=== PATIENT | male | born 1950 | race African-American/Black ===

== ENCOUNTER 2017-01-23 08:10 | Emergency (ER) | payer MEDICARE, OTHER ==
--- NOTE | 2017-01-23 08:42 | ED ---
ENT HPI - General Chief complaint: ENT Stated complaint: nose bleed Time Seen by Provider: 01/23/17 08:19 Source: patient, family, RN notes reviewed Mode of arrival: ambulatory Limitations: no limitations - History of Present Illness Initial comments: 66-year-old male presents emergency Department with chief complaint of nosebleed. Patient states she's been having recurrent nosebleeds ever since her sinus surgery by Dr. Lorenz. Patient states she had surgery in October. Patient states that he was just seen in the ER 2 days ago and which stop the nosebleed but states it restarted again this morning. He states that she has nosebleeds in the morning and sometimes in the afternoons. Patient states he does take his blood pressure medications in the morning. Patient denies any headache, dizziness, fever, chills. Patient is not taking any blood thinners. Patient has called his ENTs office multiple times and he continued to tell him to use Afrin and saline rinses and cotton balls. Patient states is not helping. Patient states that he is scheduled for sinus CT and a couple days. Patient states he is getting large clots out of his nose and out of his mouth - Related Data Home Medications Medication Instructions Recorded Confirmed Aspirin 81 mg PO DAILY 01/17/15 01/17/15 Atorvastatin [Lipitor] 80 mg PO DAILY 01/17/15 01/17/15 Chlorthalidone 25 mg PO DAILY 01/17/15 01/17/15 Cholecalciferol [Vitamin D3] 2,000 unit PO DAILY@1200 01/17/15 01/17/15 Fluticasone Propionate [Flonase] 1 spray EA NOSTRIL DAILY 01/17/15 01/17/15 Folic Acid 1 mg PO DAILY 01/17/15 01/17/15 Ibuprofen [Motrin] 800 mg PO QID PRN 01/17/15 01/17/15 Losartan [Cozaar] 50 mg PO DAILY 01/17/15 01/17/15 Methotrexate Sodium [Methotrexate] 10 mg PO Q7D 01/17/15 01/17/15 Potassium Chloride ER [K-Dur 20] 40 meq PO DAILY 01/17/15 01/17/15 Ranitidine HCl [Zantac] 150 mg PO BID PRN 01/17/15 01/17/15 Verapamil HCl [Verapamil ER] 240 mg PO BID 01/17/15 01/17/15 hydrALAZINE HCL [Apresoline] 100 mg PO TID 01/17/15 01/17/15 Previous Rx's Medication Instructions Recorded Dicyclomine [Bentyl] 20 mg PO QID #14 tablet 01/17/15 Amoxicillin/Potassium Clav 1 tab PO Q12HR #20 tab 01/23/17 [Augmentin 875-125 Tablet] Hydrocodone/Acetaminophen [[place] 1 tab PO Q6HR PRN #15 tab 01/23/17 5-325] Allergies Allergy/AdvReac Type Severity Reaction Status Date / Time Latex, Natural Rubber Allergy Rash/Hives Verified 01/23/17 08:17 Review of Systems ROS Statement: Those systems with pertinent positive or pertinent negative responses have been documented in the HPI. ROS Other: All systems not noted in ROS Statement are negative. Past Medical History Past Medical History: CVA/TIA, Hypertension History of Any Multi-Drug Resistant Organisms: None Reported Past Surgical History: Hernia Repair Additional Past Surgical History / Comment(s): unsure choley, sinus surgery Past Psychological History: No Psychological Hx Reported Smoking Status: Former smoker Past Alcohol Use History: None Reported Past Drug Use History: None Reported General Exam Limitations: no limitations General appearance: alert, in no apparent distress Head exam: Present: atraumatic, normocephalic, normal inspection Eye exam: Present: normal appearance, PERRL, EOMI. Absent: scleral icterus, conjunctival injection, periorbital swelling ENT exam: Present: mucous membranes moist, TM's normal bilaterally, normal external ear exam, other (No visualized active bleeding in the anterior nose). Absent: normal oropharynx (Blood noted in the oropharynx and posterior pharynx) Neck exam: Present: normal inspection, full ROM. Absent: tenderness, meningismus, lymphadenopathy Respiratory exam: Present: normal lung sounds bilaterally. Absent: respiratory distress, wheezes, rales, rhonchi, stridor Cardiovascular Exam: Present: regular rate, normal rhythm, normal heart sounds. Absent: systolic murmur, diastolic murmur, rubs, gallop, clicks Neurological exam: Present: alert Skin exam: Present: warm, dry, intact, normal color. Absent: rash Course Vital Signs 01/23/17 08:15 Temperature 97.2 F L Pulse Rate 82 Respiratory 20 Rate Blood Pressure 130/93 O2 Sat by Pulse 98 Oximetry Procedures - Procedures Initial comment: Procedure: 8 cm Merocel was placed in the left and right nostril Afrin was sprayed after. Patient tolerate well there is no complications. Medical Decision Making - Medical Decision Making 66-year-old male presented for epistaxis. Case was discussed with his ENT physician Dr. Lorenz. Patient had on-and-off bleeding ever since her sinus surgery in October. He did advises to pack both nostrils at this time with Merocel and he'll follow-up in office on Thursday. He did recommend antibiotics. Disposition Clinical Impression: Epistaxis Disposition: HOME SELF-CARE Condition: Stable Instructions: Nosebleed (ED) Additional Instructions: Please leave packing in place and follow-up with Dr. Lorenz on Thursday.Please return to the Emergency Department if symptoms worsen or any other concerns. Prescriptions: Amoxicillin/Potassium Clav [Augmentin 875-125 Tablet] 1 tab PO Q12HR #20 tab Hydrocodone/Acetaminophen [[place] 5-325] 1 tab PO Q6HR PRN #15 tab PRN Reason: Pain Time of Disposition: 11:10
--- NOTE | 2017-01-23 09:10 | CT ---
EXAMINATION TYPE: CT sinus wo con DATE OF EXAM: 01/23/2017 8:54 AM COMPARISON: NONE HISTORY: 66-year-old male with nose bleeds. History of sinus surgery in October 2016. CT DLP: 667.3 mGycm Automated exposure control for dose reduction was used. TECHNIQUE: Noncontrast axial views of the paranasal sinuses were obtained. Coronal reconstructions pe rformed. FINDINGS: There is a trace air-fluid level in the right maxillary sinus with persistent mucosal thickening lola g the posterior and inferior left maxillary sinus. Air-fluid level in the left maxillary sinus has de creased in the interval with trace fluid remaining. Otherwise, the frontal, ethmoid, and sphenoid sinuses are clear. Reactive [place]- osteogenesis is not seen. There is no destruction of the osseous live of the paranasal sinuses. The osteomeatal complexes are patent. The nasal septum remains deviated to the left. The imaged brain shows mild to moderate cortical atrophy. The orbits are normal in appearance. There appears to be retropharyngeal course of the right ICA impressing on to the right posterior hypopharyn x. Mastoid air cells and middle ear cavities are well pneumatized. Reformatted images confirm above findings. IMPRESSION: 1. Trace air-fluid level in the right maxillary sinus could reflect acute sinusitis. 2. Mild residual mucosal thickening in the posterior and inferior left maxillary sinus with trace rem aining air-fluid level, decreased from 09/13/2016. 3. Leftward nasal septal deviation.
[2017-01-23] MEDS ORDERED: OXYMETAZOLINE 0.05% NASL SPRAY 15 ML NASAL STA (11:08)
[2017-01-23 11:24] VITALS: BP 120/70; PULSE 79; RESP 16; TEMP 98
== END 2017-01-23 11:21 | disposition home or self-care (01) ==
LOC: EC 08:10
DX: R04.0 Epistaxis (principal); I10 Essential (primary) hypertension; Z87.891 Personal history of nicotine dependence; Z79.82 Long term (current) use of aspirin; Z79.51 Long term (current) use of inhaled steroids; Z98.890 Other specified postprocedural states; Z79.899 Other long term (current) drug therapy; Z91.040 Latex allergy status; Z86.73 Personal history of transient ischemic attack (TIA), and cerebral infarction without residual deficits
CPT/HCPCS: 30901; 70486; 99283

== ENCOUNTER 2017-01-25 12:15 | Emergency (ER) | payer MEDICARE, OTHER ==
[2017-01-25 12:34] VITALS: BP 142/75; PULSE 72; RESP 17; TEMP 97.8
--- NOTE | 2017-01-25 13:38 | ED ---
Recheck HPI - General Chief Complaint: Recheck/Abnormal Lab/Rx Stated Complaint: Nose Packing Removal Time Seen by Provider: 01/25/17 13:05 Source: patient Mode of arrival: wheelchair Limitations: no limitations - History of Present Illness Initial Comments: Patient is a 66-year-old male presenting to the emergency department with complaints of nasal discomfort. Patient states that he underwent sinus surgery in October and has had problems with epistaxis on and off since. Patient states he presented to the emergency department 2 days ago for uncontrolled epistaxis and received nasal packing to both nostrils. Patient states he has an appointment tomorrow with Dr. Lorenz to have the nasal repackings removed but they are very uncomfortable. Patient states that he did speak with Dr. Lorenz's office and they instructed him to proceed to the emergency department to have packings removed. Patient denies chills, fevers, nausea, vomiting, shortness of breath, chest pain, or abdominal pain. Patient reports that he is currently taking antibiotics that he was placed on when he had his nasal packings put in place. - Related Data Home Medications Medication Instructions Recorded Confirmed Aspirin 81 mg PO DAILY 01/17/15 01/17/15 Atorvastatin [Lipitor] 80 mg PO DAILY 01/17/15 01/17/15 Chlorthalidone 25 mg PO DAILY 01/17/15 01/17/15 Cholecalciferol [Vitamin D3] 2,000 unit PO DAILY@1200 01/17/15 01/17/15 Fluticasone Propionate [Flonase] 1 spray EA NOSTRIL DAILY 01/17/15 01/17/15 Folic Acid 1 mg PO DAILY 01/17/15 01/17/15 Ibuprofen [Motrin] 800 mg PO QID PRN 01/17/15 01/17/15 Losartan [Cozaar] 50 mg PO DAILY 01/17/15 01/17/15 Methotrexate Sodium [Methotrexate] 10 mg PO Q7D 01/17/15 01/17/15 Potassium Chloride ER [K-Dur 20] 40 meq PO DAILY 01/17/15 01/17/15 Ranitidine HCl [Zantac] 150 mg PO BID PRN 01/17/15 01/17/15 Verapamil HCl [Verapamil ER] 240 mg PO BID 01/17/15 01/17/15 hydrALAZINE HCL [Apresoline] 100 mg PO TID 01/17/15 01/17/15 Previous Rx's Medication Instructions Recorded Dicyclomine [Bentyl] 20 mg PO QID #14 tablet 01/17/15 Amoxicillin/Potassium Clav 1 tab PO Q12HR #20 tab 01/23/17 [Augmentin 875-125 Tablet] Hydrocodone/Acetaminophen [[place] 1 tab PO Q6HR PRN #15 tab 01/23/17 5-325] Allergies Allergy/AdvReac Type Severity Reaction Status Date / Time Latex, Natural Rubber Allergy Rash/Hives Verified 01/23/17 08:17 Review of Systems ROS Statement: Those systems with pertinent positive or pertinent negative responses have been documented in the HPI. ROS Other: All systems not noted in ROS Statement are negative. Past Medical History Past Medical History: CVA/TIA, Hypertension History of Any Multi-Drug Resistant Organisms: None Reported Past Surgical History: Hernia Repair Additional Past Surgical History / Comment(s): unsure choley, sinus surgery Past Psychological History: No Psychological Hx Reported Smoking Status: Former smoker Past Alcohol Use History: None Reported Past Drug Use History: None Reported General Exam - General Exam Comments Initial Comments: GENERAL: Pt awake and alert, well-appearing, well-nourished, and in no acute distress. HEAD: Atraumatic, normocephalic. EYES: Pupils equal and round. Sclera anicteric, conjunctiva are normal. ENT: Oropharynx clear without exudates. Moist mucous membranes. Nasal packing to bilateral naris. NECK: Supple without lymphadenopathy or JVD. LUNGS: Breath sounds clear to auscultation bilaterally. No wheezes, rales, or rhonchi. HEART: Heart S1, S2, no S3 or S4. Regular rate and rhythm. No murmurs, rubs or gallops. ABDOMEN: Soft, nontender, nondistended, normoactive bowel sounds. NEUROLOGICAL: Pt oriented x 3. No focal deficits. PSYCH: Normal mood, normal affect. SKIN: Warm and dry. Course Vital Signs 01/25/17 12:31 Temperature 97.8 F Pulse Rate 72 Respiratory 17 Rate Blood Pressure 142/75 O2 Sat by Pulse 98 Oximetry Procedures - Procedures Initial comment: Bilateral nasal packings removed. Patient tolerated well. No evidence of epistaxis. Medical Decision Making - Medical Decision Making Patient presents to the emergency department with complaints of nasal discomfort after undergoing bilateral nasal packing for epistaxis 2 days ago. Bilateral nasal packings removed without incident. No evidence of further epistaxis. Patient tolerated procedure well. Patient instructed to follow-up with Dr. Lorenz tomorrow as previously scheduled. Patient instructed to finish antibiotics as previous prescribed. Return parameters and discharge instructions reviewed. Disposition Clinical Impression: Encounter for removal of nasal packing Disposition: HOME SELF-CARE Condition: Good Instructions: Nosebleed (ED) Additional Instructions: Finish antibiotics as previously prescribed. Follow-up with Dr. Lorenz tomorrow as previously scheduled. Please return to the emergency department if epistaxis returns and is uncontrollable. Avoid blowing your nose forcefully. Referrals: Tuan Arizmendi MD [Primary Care Provider] - 1-2 days Time of Disposition: 13:38
== END 2017-01-25 14:09 | disposition home or self-care (01) ==
LOC: EC 12:15
DX: Z48.00 Encounter for change or removal of nonsurgical wound dressing (principal); I10 Essential (primary) hypertension; Z87.891 Personal history of nicotine dependence; Z79.82 Long term (current) use of aspirin; Z79.899 Other long term (current) drug therapy; Z91.040 Latex allergy status; Z86.73 Personal history of transient ischemic attack (TIA), and cerebral infarction without residual deficits
CPT/HCPCS: 99283

== ENCOUNTER → 2017-09-14 | Outpatient (CLI) | payer MEDICARE, OTHER ==
[2017-09-14 10:35] LABS: Anisocytosis Slight; Basophils % (A) 0 %; CH 27.2; CHCM 28.9; Eosinophils # (A) 0.1 k/uL (0-0.7); Eosinophils % (A) 1 %; HCT 32.6 % (39.0-53.0); HGB 9.5 gm/dL (13.0-17.5); Hypochromasia Marked; Luc # (Auto) 0.22; Luc % (Auto) 3; Lymphocytes # (A) 1.9 k/uL (1.0-4.8); Lymphocytes % (A) 22 %; MCH 27.6 pg (25.0-35.0); MCHC 29.2 g/dL (31.0-37.0); MCV 94.5 fL (80.0-100.0); Mean Platelet Volume 7.5; Monocytes # (A) 0.5 k/uL (0-1.0); Monocytes % (A) 6 %; Neutrophils # (A) 5.7 k/uL (1.3-7.7); Neutrophils % (A) 68 %; RBC 3.45 m/uL (4.30-5.90); RDW 16.8 % (11.5-15.5); WBC 8.3 k/uL (3.8-10.6); WBC (Perox) 8.15
[2017-09-14 10:49] LABS: INR 1.1 (<1.2); Prothrombin Time 11.1 sec (9.0-12.0)
[2017-09-14 10:50] LABS: Anion Gap 11 mmol/L; Blood Urea Nitrogen 10 mg/dL (9-20); Calcium 9.6 mg/dL (8.4-10.2); Carbon Dioxide 22 mmol/L (22-30); Chloride 106 mmol/L (98-107); Glucose 120 mg/dL (74-99); Non-African American GFR(MDRD) >60 (>60 ml/min/1.73 sqM); Potassium 4.4 mmol/L (3.5-5.1); Sodium 139 mmol/L (137-145)
[2017-09-14 11:00] LABS: Partial Thromboplastin Time 21.1 sec (22.0-30.0)
== END | disposition home or self-care (01) ==
LOC: LABWHC1 09:23
PROVIDERS: ATTEND Radiology Neuroradiology
DX: R04.0 Epistaxis (principal)
CPT/HCPCS: 36415; 80048; 85025; 85610; 85730

== ENCOUNTER 2021-03-11 13:36 | Inpatient (IN) | payer MEDICARE, OTHER ==
[2021-03-11] MEDS ORDERED: SODIUM CHLORIDE 0.9% 500 ML 500 ML IV STA (14:17)
--- NOTE | 2021-03-11 14:18 | ED ---
Abdominal Pain HPI - General Chief Complaint: Abdominal Pain Stated Complaint: Sent by pcp,ABD pain Time Seen by Provider: 03/11/21 14:15 Source: patient, RN notes reviewed Mode of arrival: wheelchair Limitations: no limitations - History of Present Illness Initial Comments: 70-year-old black male patient, alert and oriented 4, presents with complaints of abdominal pain epigastric in nature for one week. Patient seen his primary care doctor Dr. Arizmendi last week and was prescribed a purple pill but states does not make it better. Patient was also told his liver was enlarged at that time. Patient states that epigastric pain is sharp, sometimes it's distant where he knows it's there but not sharp. Patient states started while he was watching TV 1 week ago. Patient has history of CVA with right-sided weakness 1994, and hypertension. Surgical history of cholecystectomy and hernia repair. Patient states normal bowel movement today, no nausea or vomiting, no dysuria, denies fevers, occasional cough, denies chest pain. MD Complaint: abdominal pain -: days(s) (11) Location: epigastric Radiation: none Severity scale (1-10): 0 Quality: sharp, other (distant at times) Consistency: constant Improves With: rest Worsens With: movement Associated Symptoms: denies other symptoms Treatments Prior to Arrival: other (purple pill prescribed last week by Dr Arizmendi) - Related Data Home Medications Medication Instructions Recorded Confirmed Aspirin 81 mg PO DAILY 01/17/15 03/11/21 Atorvastatin [Lipitor] 80 mg PO DAILY 01/17/15 03/11/21 Cholecalciferol [Vitamin D3 (25 5,000 unit PO DAILY 01/17/15 03/11/21 Mcg = 1000 Iu)] Folic Acid 1 mg PO DAILY 01/17/15 03/11/21 Potassium Chloride ER [K-Dur 20] 20 meq PO DAILY 01/17/15 03/11/21 metHOTREXate sodium [Methotrexate] 25 mg PO MO 01/17/15 03/11/21 Doxazosin [Cardura] 2 mg PO DAILY 09/23/17 03/11/21 Magnesium Oxide 400 mg PO DAILY 09/23/17 03/11/21 Spironolactone [Aldactone] 25 mg PO TID 09/23/17 03/11/21 metFORMIN HCL [Glucophage] 500 mg PO DIRECTED 09/23/17 03/11/21 Acetaminophen [Tylenol 8 Hour] 1,300 mg PO TID PRN 03/11/21 03/11/21 Albuterol Inhaler [Ventolin Hfa 2 puff INHALATION RT-QID PRN 03/11/21 03/11/21 Inhaler] Ferrous Sulfate [Iron] 325 mg PO TID 03/11/21 03/11/21 Omeprazole [PriLOSEC] 20 mg PO DAILY 03/11/21 03/11/21 amLODIPine [Norvasc] 5 mg PO DAILY 03/11/21 03/11/21 Allergies Allergy/AdvReac Type Severity Reaction Status Date / Time Latex, Natural Rubber Allergy Rash/Hives Verified 03/11/21 16:42 Review of Systems ROS Statement: Those systems with pertinent positive or pertinent negative responses have been documented in the HPI. ROS Other: All systems not noted in ROS Statement are negative. Past Medical History Past Medical History: CVA/TIA, Hypertension History of Any Multi-Drug Resistant Organisms: None Reported Past Surgical History: Hernia Repair Additional Past Surgical History / Comment(s): unsure choley, sinus surgery Past Anesthesia/Blood Transfusion Reactions: No Reported Reaction Past Psychological History: No Psychological Hx Reported Smoking Status: Former smoker Past Alcohol Use History: None Reported Past Drug Use History: None Reported - Past Family History Brother(s) Family Medical History: Diabetes Mellitus General Exam Limitations: no limitations General appearance: alert, in no apparent distress Head exam: Present: atraumatic, normocephalic, normal inspection Eye exam: Present: PERRL, EOMI, scleral icterus. Absent: conjunctival injection, periorbital swelling ENT exam: Present: normal exam, mucous membranes moist Neck exam: Present: normal inspection, full ROM. Absent: tenderness, meningismus, lymphadenopathy Respiratory exam: Present: normal lung sounds bilaterally. Absent: respiratory distress, wheezes, rales, rhonchi, stridor Cardiovascular Exam: Present: regular rate, normal rhythm, normal heart sounds. Absent: systolic murmur, diastolic murmur, rubs, gallop, clicks GI/Abdominal exam: Present: soft, distended, normal bowel sounds. Absent: tenderness, guarding, rebound, rigid Extremities exam: Present: normal inspection, full ROM, normal capillary refill. Absent: tenderness, pedal edema, joint swelling, calf tenderness Neurological exam: Present: alert, oriented X3 Psychiatric exam: Present: normal affect, normal mood Skin exam: Present: warm, dry, intact, normal color. Absent: rash Course Vital Signs 03/11/21 03/11/21 03/11/21 13:50 15:38 16:55 Temperature 98.0 F Pulse Rate 77 68 63 Respiratory 189 H 18 18 Rate Blood Pressure 136/88 173/93 161/96 O2 Sat by Pulse 100 98 98 Oximetry 03/11/21 18:50 Temperature Pulse Rate 70 Respiratory 18 Rate Blood Pressure 123/82 O2 Sat by Pulse 98 Oximetry Medical Decision Making - Medical Decision Making X-ray shows scattered gas and fecal matter in a nondistended colon, no obstruction. WBC count is 5.0, hemoglobin and hematocrit is 14.4 and 44.4 respectively, potassium is 4.1, troponin 0.012. T bili 4.7, AST 667, PLT 648, alk phos 354. CT abdomen and pelvis shows positive colonic diverticulitis with right renal cysts. Case discussed with Dr. Cabrera who will continue with patient care. - Lab Data Result diagrams: 03/11/21 15:39 03/11/21 15:39 Lab Results 03/11/21 03/11/21 03/11/21 Range/Units 15:39 15:39 15:39 WBC 5.0 (3.8-10.6) k/uL RBC 4.43 (4.30-5.90) m/uL Hgb 14.4 (13.0-17.5) gm/dL Hct 44.4 (39.0-53.0) % MCV 100.0 (80.0-100.0) fL MCH 32.5 (25.0-35.0) pg MCHC 32.5 (31.0-37.0) g/dL RDW 14.4 (11.5-15.5) % Plt Count 155 (150-450) k/uL MPV 8.2 Neutrophils % 63 % Lymphocytes % 27 % Monocytes % 7 % Eosinophils % 1 % Basophils % 0 % Neutrophils # 3.2 (1.3-7.7) k/uL Lymphocytes # 1.3 (1.0-4.8) k/uL Monocytes # 0.3 (0-1.0) k/uL Eosinophils # 0.0 (0-0.7) k/uL Basophils # 0.0 (0-0.2) k/uL Macrocytosis Slight PT 12.0 (9.0-12.0) sec INR 1.1 (<1.2) APTT 22.6 (22.0-30.0) sec Sodium (137-145) mmol/L Potassium (3.5-5.1) mmol/L Chloride (98-107) mmol/L Carbon Dioxide (22-30) mmol/L Anion Gap mmol/L BUN (9-20) mg/dL Creatinine (0.66-1.25) mg/dL Est GFR (CKD-EPI)AfAm (>60 ml/min/1.73 sqM) Est GFR (CKD-EPI)NonAf (>60 ml/min/1.73 sqM) Glucose (74-99) mg/dL Plasma Lactic Acid Prudencio (0.7-2.0) mmol/L Calcium (8.4-10.2) mg/dL Total Bilirubin (0.2-1.3) mg/dL AST (17-59) U/L ALT (4-49) U/L Alkaline Phosphatase (38-126) U/L Troponin I (0.000-0.034) ng/mL Total Protein (6.3-8.2) g/dL Albumin (3.5-5.0) g/dL Amylase (30-110) U/L Lipase (23-300) U/L Urine Color Yellow Urine Appearance Clear (Clear) Urine pH 5.5 (5.0-8.0) Ur Specific [place] 1.005 (1.001-1.035) Urine Protein Negative (Negative) Urine Glucose (UA) 2+ H (Negative) Urine Ketones 1+ H (Negative) Urine Blood Negative (Negative) Urine Nitrite Negative (Negative) Urine Bilirubin Negative (Negative) Urine Urobilinogen <2.0 (<2.0) mg/dL Ur Leukocyte Esterase Negative (Negative) Coronavirus (PCR) (Not Detectd) 03/11/21 03/11/21 03/11/21 Range/Units 15:39 15:39 15:39 WBC (3.8-10.6) k/uL RBC (4.30-5.90) m/uL Hgb (13.0-17.5) gm/dL Hct (39.0-53.0) % MCV (80.0-100.0) fL MCH (25.0-35.0) pg MCHC (31.0-37.0) g/dL RDW (11.5-15.5) % Plt Count (150-450) k/uL MPV Neutrophils % % Lymphocytes % % Monocytes % % Eosinophils % % Basophils % % Neutrophils # (1.3-7.7) k/uL Lymphocytes # (1.0-4.8) k/uL Monocytes # (0-1.0) k/uL Eosinophils # (0-0.7) k/uL Basophils # (0-0.2) k/uL Macrocytosis PT (9.0-12.0) sec INR (<1.2) APTT (22.0-30.0) sec Sodium 136 L (137-145) mmol/L Potassium 4.1 (3.5-5.1) mmol/L Chloride 103 (98-107) mmol/L Carbon Dioxide 26 (22-30) mmol/L Anion Gap 7 mmol/L BUN 7 L (9-20) mg/dL Creatinine 0.84 (0.66-1.25) mg/dL Est GFR (CKD-EPI)AfAm >90 (>60 ml/min/1.73 sqM) Est GFR (CKD-EPI)NonAf 89 (>60 ml/min/1.73 sqM) Glucose 148 H (74-99) mg/dL Plasma Lactic Acid Prudencio 1.2 (0.7-2.0) mmol/L Calcium 9.1 (8.4-10.2) mg/dL Total Bilirubin 4.7 H (0.2-1.3) mg/dL AST 667 H (17-59) U/L ALT 648 H (4-49) U/L Alkaline Phosphatase 354 H (38-126) U/L Troponin I <0.012 (0.000-0.034) ng/mL Total Protein 6.9 (6.3-8.2) g/dL Albumin 3.9 (3.5-5.0) g/dL Amylase 99 (30-110) U/L Lipase 226 (23-300) U/L Urine Color Urine Appearance (Clear) Urine pH (5.0-8.0) Ur Specific [place] (1.001-1.035) Urine Protein (Negative) Urine Glucose (UA) (Negative) Urine Ketones (Negative) Urine Blood (Negative) Urine Nitrite (Negative) Urine Bilirubin (Negative) Urine Urobilinogen (<2.0) mg/dL Ur Leukocyte Esterase (Negative) Coronavirus (PCR) (Not Detectd) 03/11/21 Range/Units 18:50 WBC (3.8-10.6) k/uL RBC (4.30-5.90) m/uL Hgb (13.0-17.5) gm/dL Hct (39.0-53.0) % MCV (80.0-100.0) fL MCH (25.0-35.0) pg MCHC (31.0-37.0) g/dL RDW (11.5-15.5) % Plt Count (150-450) k/uL MPV Neutrophils % % Lymphocytes % % Monocytes % % Eosinophils % % Basophils % % Neutrophils # (1.3-7.7) k/uL Lymphocytes # (1.0-4.8) k/uL Monocytes # (0-1.0) k/uL Eosinophils # (0-0.7) k/uL Basophils # (0-0.2) k/uL Macrocytosis PT (9.0-12.0) sec INR (<1.2) APTT (22.0-30.0) sec Sodium (137-145) mmol/L Potassium (3.5-5.1) mmol/L Chloride (98-107) mmol/L Carbon Dioxide (22-30) mmol/L Anion Gap mmol/L BUN (9-20) mg/dL Creatinine (0.66-1.25) mg/dL Est GFR (CKD-EPI)AfAm (>60 ml/min/1.73 sqM) Est GFR (CKD-EPI)NonAf (>60 ml/min/1.73 sqM) Glucose (74-99) mg/dL Plasma Lactic Acid Prudencio (0.7-2.0) mmol/L Calcium (8.4-10.2) mg/dL Total Bilirubin (0.2-1.3) mg/dL AST (17-59) U/L ALT (4-49) U/L Alkaline Phosphatase (38-126) U/L Troponin I (0.000-0.034) ng/mL Total Protein (6.3-8.2) g/dL Albumin (3.5-5.0) g/dL Amylase (30-110) U/L Lipase (23-300) U/L Urine Color Urine Appearance (Clear) Urine pH (5.0-8.0) Ur Specific [place] (1.001-1.035) Urine Protein (Negative) Urine Glucose (UA) (Negative) Urine Ketones (Negative) Urine Blood (Negative) Urine Nitrite (Negative) Urine Bilirubin (Negative) Urine Urobilinogen (<2.0) mg/dL Ur Leukocyte Esterase (Negative) Coronavirus (PCR) Detected A (Not Detectd) Disposition Clinical Impression: Hepatitis Disposition: ADMITTED IP TO THIS [facility] Condition: Fair Is patient prescribed a controlled substance at d/c from ED?: No Referrals: Tuan Arizmendi MD [Primary Care Provider] - 1-2 days Decision Date: 03/11/21 Decision Time: 20:18
--- NOTE | 2021-03-11 15:31 | XR ---
EXAMINATION TYPE: XR KUB DATE OF EXAM: 03/11/2021 3:22 PM CLINICAL HISTORY: Abdominal pain for one week. TECHNIQUE: Two Upright KUB images of the abdomen are obtained. COMPARISON: Abdominal x-ray December 12, 2012. FINDINGS: Gas is seen in nondistended stomach. Scattered gas is seen in non-distended small bowel loo ps. Gas and fecal material is seen in non-distended colon along the periphery. Cholecystectomy clips redemonstrated. Chronic left basilar opacity favoring scarring. Possible 13 mm calculus right mid abd omen on one view does not persist on second image. No free air. Suspect asymmetric narrowing and scle rosis right sacroiliac joint. Scattered bilateral pelvic phleboliths. IMPRESSION: Overall nonobstructive bowel gas pattern redemonstrated.
[2021-03-11 15:49] LABS: Basophils % (A) 0 %; Eosinophils % (A) 1 %; HCT 44.4 % (39.0-53.0); HGB 14.4 gm/dL (13.0-17.5); Lymphocytes # (A) 1.3 k/uL (1.0-4.8); Lymphocytes % (A) 27 %; MCH 32.5 pg (25.0-35.0); MCHC 32.5 g/dL (31.0-37.0); Macrocytosis Slight; Mean Platelet Volume 8.2; Monocytes # (A) 0.3 k/uL (0-1.0); Monocytes % (A) 7 %; Neutrophils # (A) 3.2 k/uL (1.3-7.7); Neutrophils % (A) 63 %; Platelet Count 155 k/uL (150-450); RBC 4.43 m/uL (4.30-5.90); RDW 14.4 % (11.5-15.5)
[2021-03-11 16:05] LABS: ALT 648 U/L (4-49); AST 667 U/L (17-59); African American GFR (CKD) >90 (>60 ml/min/1.73 sqM); Albumin 3.9 g/dL (3.5-5.0); Alkaline Phosphatase 354 U/L (38-126); Amylase 99 U/L (30-110); Anion Gap 7 mmol/L; Blood Urea Nitrogen 7 mg/dL (9-20); Calcium 9.1 mg/dL (8.4-10.2); Carbon Dioxide 26 mmol/L (22-30); Chloride 103 mmol/L (98-107); Glucose 148 mg/dL (74-99); INR 1.1 (<1.2); Lipase 226 U/L (23-300); Non-African American GFR(CKD) 89 (>60 ml/min/1.73 sqM); Partial Thromboplastin Time 22.6 sec (22.0-30.0); Potassium 4.1 mmol/L (3.5-5.1); Sodium 136 mmol/L (137-145); Total Bilirubin 4.7 mg/dL (0.2-1.3); Total Protein 6.9 g/dL (6.3-8.2)
[2021-03-11 16:07] LABS: Appearance,Urine Clear (Clear); Bilirubin,Urine Negative (Negative); Blood,Urine Negative (Negative); Color,Urine Yellow; Glucose,Urine (UA) 2+ (Negative); Ketones,Urine 1+ (Negative); Leukocyte Esterase,Urine Negative (Negative); Nitrite,Urine Negative (Negative); PH, Urine 5.5 (5.0-8.0); Protein,Urine Negative (Negative); Specific Gravity,Urine 1.005 (1.001-1.035); Urobilinogen,Urine <2.0 mg/dL (<2.0)
[2021-03-11] MEDS ORDERED: FAMOTIDINE 20 MG/2 ML VIAL IV STA (16:47)
--- NOTE | 2021-03-11 18:54 | CT ---
EXAMINATION TYPE: CT abdomen pelvis w con DATE OF EXAM: 03/11/2021 COMPARISON: None HISTORY: Abdominal pain x1 week. CT DLP: 1511.9 mGycm Automated exposure control for dose reduction was used. CONTRAST: Performed with IV Contrast, patient injected with 100ml mL of Isovue 300. There is minimal subsegmental atelectasis at the lung bases. Heart size is normal. There is no perica rdial effusion. Liver spleen stomach pancreas appear intact. The bile ducts are not dilated. There are clips from cho lecystectomy. There is no adrenal mass. Kidneys have normal size. There is no hydronephrosis. There is satisfactory contrast opacification of the kidneys. There are right renal cortical cysts that measure up to 4 cm. There is no hydronephrosis. Delayed images show normal renal excretion. There is no retroperitoneal adenopathy. Bladder distends smoothly. There is no inguinal hernia. There is no free fluid in the pel vis. There is small umbilical hernia that contains fat. There is no evidence of a pelvic mass. There are multiple large bowel diverticula. There is no sign o f diverticulitis. Appendix is not definitely seen. There is no sign of thickened appendix. There is n o mesenteric edema. There is no ascites or free air. There is no bowel obstruction. The lumbar vertebra have normal alignment. There is vacuum disc at L5-S1. There is rudimentary disc a t S1-S2. There is some patchy sclerosis in the right iliac bone. Clinical significance is not clear. No cortical destruction. No evidence of soft tissue mass. IMPRESSION: No acute abnormality of the abdomen pelvis. There is colonic diverticulosis without diverticulitis. R ight renal cortical cysts. No renal obstruction. Appendix not seen. No sign of thickened appendix. Osteosclerosis in small patchy areas of the right ilium of uncertain significance.
[2021-03-11] MEDS ORDERED: NALOXONE 0.4 MG/ML 1 ML VIAL IV PRN (20:00)
[2021-03-12 01:26] LABS: Hepatitis A Antibody IgM Non-Reactive (Non-Reactive); Hepatitis B Core IgM Non-Reactive (Non-Reactive); Hepatitis B Surface Antigen Non-Reactive (Non-Reactive); Hepatitis C IgG Antibody Non-Reactive (Non-Reactive)
[2021-03-12] MEDS: SODIUM CHLORIDE 0.9% 1,000 ML IV SCH ×3 (01:55→17:14)
[2021-03-12 07:35] LABS: INR 1.1 (<1.2); Prothrombin Time 11.5 sec (9.0-12.0)
[2021-03-12] MEDS: PANTOPRAZOLE 40 MG/10 ML VIAL IVP SCH ×2 (08:09→21:19)
[2021-03-12 09:39] LABS: Basophils # (A) 0.01 X 10*3/uL (0.00-0.10); Basophils % (A) 0.2 %; Eosinophils # (A) 0.03 X 10*3/uL (0.04-0.35); Eosinophils % (A) 0.6 %; HCT 41.2 % (39.6-50.0); HGB 13.6 g/dL (13.0-17.0); Lymphocytes # (A) 1.71 X 10*3/uL (0.90-5.00); Lymphocytes % (A) 31.4 %; MCH 32.8 pg (27.0-32.0); MCV 99.3 fL (80.0-97.0); Mean Platelet Volume 11.4 fL (9.5-12.2); Monocytes # (A) 0.65 X 10*3/uL (0.20-1.00); Monocytes % (A) 11.9 %; Neutrophils # (A) 3.02 X 10*3/uL (1.80-7.70); Neutrophils % (A) 55.5 %; Platelet Count 152 X 10*3/uL (140-440); RBC 4.15 X 10*6/uL (4.40-5.60); RDW 13.5 % (11.5-14.5); WBC 5.44 X 10*3/uL (4.50-10.00)
--- NOTE | 2021-03-12 10:49 | US ---
EXAMINATION TYPE: US liver DATE OF EXAM: 03/12/2021 COMPARISON: CT 03/11/2021 CLINICAL HISTORY: 70-year-old male epigastric pain, elevated LFT's. TECHNIQUE: Multiple sonographic images of the right upper quadrant are obtained. FINDINGS: EXAM MEASUREMENTS: Liver Length: 12.9 cm Gallbladder: Surgically absent CBD: 0.5 cm Right Kidney: 11.0 x 4.8 x 4.8 cm Pancreas: Suboptimal visualization of the pancreatic tail due to shadowing from bowel gas. Liver: Very slight increased echogenicity could be technical or could represent mild fatty infiltrat ion. No focal lesion is seen. Gallbladder: Surgically absent CBD: wnl Right Kidney: 3 benign cysts seen, largest measures 2.8 x 3.1 x 3.7 cm. No hydronephrosis. IMPRESSION: 4. Status post cholecystectomy. Despite the prominent appearance of the bile duct on the patient's re cent CT, the bile ducts measures normal caliber on the present ultrasound. Correlate with alkaline ph osphatase and bilirubin levels. If elevated, ERCP or MRCP to exclude any abnormal filling defect in t he lower bile duct, refer to coronal image [address] performed yesterday. 2. There may be mild hepatic steatosis. 3. 3 benign right renal cysts measuring up to 3.7 cm.
[2021-03-12 14:23] LABS: African American GFR (CKD) 99.9 (60.0-200.0); Albumin 3.8 g/dL (3.80-4.90); Albumin/Globulin Ratio 1.58 (1.60-3.17); Anion Gap 13.8 mmol/L (4.00-12.00); BUN/Creat Ratio 7.78 Ratio (12.00-20.00); Calcium 8.7 mg/dL (8.7-10.3); Carbon Dioxide 21.2 mmol/L (21.6-31.8); Globulin 2.4 g/dL (1.6-3.3); Non-African American GFR(CKD) 86.2 (60.0-200.0); Potassium 3.8 mmol/L (3.5-5.5); Total Bilirubin 2.8 mg/dL (0.2-1.2); Total Protein 6.2 g/dL (6.2-8.2)
--- NOTE | 2021-03-12 16:28 | CONS ---
CONSULTATION DATE OF DICTATION: 03/12/2021 REASON FOR CONSULTATION: Epigastric pain and elevated LFTs and jaundice. HISTORY OF PRESENT ILLNESS: The patient is a 70-year-old -[place] male who came into the emergency room with abdominal pain for the last 2 weeks' duration. Symptoms have been on and off, but have been progressively getting worse. Yesterday the pain became very intense and hence he came into the emergency room and subsequently was admitted to the hospital. He was noted to have elevated serum transaminases as well as bilirubin up to 4. Hence we are consulted for further evaluation. He has remote history of gallbladder surgery for symptomatic gallstones. He states that he had a similar episode about 2 years ago and symptoms lasted for a few days and then resolved. The patient also states that last week he went to the emergency room at [facility] and had labs done and was noted to have elevated LFTs also. Labs during this hospitalization revealed a bilirubin of 4.7, AST and ALT of 667 and 640, respectively. Alkaline phosphatase 354. Today bilirubin is down to 2.8. AST and ALT are 367 and 533, respectively. Lipase is within normal limits. PAST MEDICAL HISTORY: Significant for hypertension, gastroesophageal reflux disease, diabetes mellitus, hypercholesteremia, COPD and arthritis. MEDICATIONS: Medications at home include aspirin, Lipitor, vitamin D3, K-Dur, methotrexate, Cardura, magnesium oxide, Aldactone, Glucophage, Tylenol, Ventolin, iron sulfate, Prilosec and Norvasc. ALLERGIES: LATEX. PAST SURGICAL HISTORY: Hernia repair and gallbladder surgery as well as sinus surgery. SOCIAL HISTORY: Former smoker. No alcohol use. FAMILY HISTORY: Brother has diabetes mellitus. REVIEW OF SYSTEMS: CARDIOPULMONARY: No chest pain or shortness of breath. GENITOURINARY: No dysuria or hematuria. MUSCULOSKELETAL: Unremarkable. SKIN: Unremarkable. ENDOCRINE: Unremarkable other than diabetes mellitus. ENT/VISION: Unremarkable. CONSTITUTIONAL: No recent weight loss. No fever, chills, night sweats. HEMATOLOGY: Unremarkable. PHYSICAL EXAMINATION: He appears comfortable. No apparent distress. Vital signs are stable. Blood pressure is 132/85, pulse rate 63, temperature 99.3. T- max was 99.8. HEENT examination unremarkable. Conjunctivae pink. Sclerae anicteric. Oral cavity no lesions. NECK: No JVD or lymph node enlargement. CHEST: Clear to auscultation. HEART: Regular rate and rhythm. ABDOMEN: Soft. There was tenderness in the epigastric area. Bowel sounds are positive. No organomegaly. EXTREMITIES: No pedal edema. SKIN: No rashes. NEUROLOGIC: He is alert and oriented x3. No focal deficits. LABS: Labs from yesterday: WBC 5, hemoglobin 14.4, platelets normal. Today WBC 5.4, hemoglobin 13.6, and platelets are normal. T-bilirubin was 4.7, AST 667, ALT 648, and alkaline phosphatase 354. Today T-bilirubin is 2.8, AST 367, ALT 533, and alkaline phosphatase is 337. Lipase is 52. Coronavirus PCR is positive. Hepatitis serologies for A, B and C are negative. IMPRESSION: 1. This is a 70-year-old pleasant -[place] male admitted to the hospital with intermittent episodes of epigastric pain for the last 2 weeks' duration. During this hospitalization he was noted to have elevated LFTs and jaundice with a bilirubin of 4.3. He did have a CT of the abdomen and pelvis done that showed evidence of cholecystectomy, but no other acute abnormality noted in the abdomen and pelvis. This morning he had ultrasound of the right upper quadrant done that showed CBD measuring 5 mm and prominence of the bile duct and increased echogenicity of the liver noted. His clinical presentation and biochemical parameters are most suggestive of retained common bile duct stone. 2. COVID-19 infection, but patient is asymptomatic. 3. History of diabetes mellitus, hypertension and hyperlipidemia. RECOMMENDATIONS: 1. Will repeat LFTs tomorrow morning. 2. Schedule the patient for MRCP and if there is a definite indication of a stone, we will proceed with an ERCP tomorrow. Discussed with the patient risks, benefits and complications, and he is agreeable to it. Will follow with you closely. Thank you for this consultation. MMODL / IJN: [id number] /
--- NOTE | 2021-03-12 18:43 | HP ---
HISTORY AND PHYSICAL CHIEF COMPLAINT: Epigastric pain and elevated liver function studies. HISTORY OF PRESENT ILLNESS: This is another admission for this 70-year-old -[place] male. He had a CVA many years ago but otherwise has been fairly stable. He has had some other issues, including hypertension, type 2 diabetes, a GI bleed, but he has been fairly stable of late. He recently started to complain of epigastric pain without fever, chills, nausea, vomiting, food intolerance, etc. He has had a cholecystectomy. During his workup he was noted to have markedly elevated ALT, AST and alkaline phosphatase. CT failed to demonstrate an etiology. Because of his increasing pain and rapidly rising enzymes, it was decided to place him in the hospital for urgent workup and to be seen by Gastroenterology. Various possibilities would include obstruction of the common duct, statin therapy and methotrexate. REVIEW OF SYSTEMS: He has had no headaches, recent neurologic problems, nausea, vomiting, hematemesis, melena, hematochezia, jaundice, acholic stools, dark urine, chest pain, shortness of breath, incontinence, nocturia, renal failure, etc. Past medical history, family history, and personal and social histories reveal he is ALLERGIC to MANNY INHIBITORS AND LASIX. He is on Pepcid, omeprazole, folic acid, methotrexate, doxazosin, aspirin, atorvastatin, metformin, potassium, vitamin D3, spironolactone, amlodipine and magnesium. He used to smoke but has stopped. He does not consume alcohol. PHYSICAL EXAMINATION: Blood pressure is 180/70, pulse 60 and regular, respirations 16. He is afebrile. In general he appeared to be well developed, slightly overweight, and in no acute distress. Skin color is normal. Skin is warm are dry. Head, ears, eyes, nose, mouth and throat were normal. Neck veins were not distended. Chest is clear. Cardiac exam is normal. The abdomen is slightly protuberant and he was tender over the epigastrium. There was no detectable visceromegaly or masses. Bowel sounds are present. Extremities were normal. Neurologically he is intact except for his hemiparesis. He is admitted to the hospital with the diagnoses: 1. Epigastric pain with elevated liver function studies. 2. Hypertension. 3. Type 2 diabetes. 4. Previous cerebrovascular accident. PLAN: 1. Bedrest. 2. IV fluids. 3. Stop methotrexate, metformin and atorvastatin. 4. Viral hepatitis and profile. 5. Possible ERCP. MMODL / IJN: [id number] /
--- NOTE | 2021-03-12 19:34 | PN ---
PROGRESS NOTE DATE OF SERVICE: 03/12/2021 CHIEF COMPLAINT: Epigastric pain and elevated liver function studies. HISTORY OF PRESENT ILLNESS: This gentleman is doing fairly well. He is not having a significant amount of pain. He has had no nausea or vomiting. Liver enzymes are coming down. He has been seen by Gastroenterology, and they have ordered an ERCP. PHYSICAL EXAMINATION: He is still a little bit tender over the epigastrium. Bowel sounds are present. Chest is clear. IMPRESSION: Elevated liver function studies with abdominal pain. PLAN: 1. Await results of further studies. 2. Viral hepatitis antibody profile is negative. MMODL / IJN: [id number] /
[2021-03-12 21:18] LABS: % Iron Saturation 35.82 (15.00-50.00)
[2021-03-12] MEDS: SPIRONOLACTONE 25 MG TAB PO SCH (21:20)
[2021-03-12] MEDS: FERROUS SULFATE 325 MG TAB PO SCH (21:20)
[2021-03-12 22:00] LABS: Ferritin 588.1 ng/mL (22.0-322.0)
[2021-03-13 00:44] LABS: Alpha Fetoprotein, Tumor Mkr <2.5 ng/mL (0.0-7.9)
[2021-03-13] MEDS: SODIUM CHLORIDE 0.9% 1,000 ML IV SCH ×3 (02:17→22:21)
[2021-03-13] MEDS: DOXAZOSIN 2 MG TAB PO SCH (08:15)
[2021-03-13] MEDS: SPIRONOLACTONE 25 MG TAB PO SCH ×3 (08:15→20:15)
[2021-03-13] MEDS: amLODIPine 5 MG TAB PO SCH (08:15)
[2021-03-13] MEDS ORDERED: NON FORMULARY DRUG (Omeprazole 20 MG Capsule.Dr) PO SCH (09:00)
[2021-03-13] MEDS ORDERED: INDOMETHACIN 50MG SUPPOSITORY RECTAL ONE (10:00)
[2021-03-13] MEDS ORDERED: LEVOFLOXACIN 500MG-D5W PMX 500 MG in DEXTROSE/WATER 1 100ML.BAG IVPB SCH (10:00)
[2021-03-13 10:01] LABS: ALT 347 U/L (4-49); AST 242 U/L (17-59); African American GFR (CKD) >90 (>60 ml/min/1.73 sqM); Albumin 3.2 g/dL (3.5-5.0); Albumin/Globulin Ratio 1.1; Alkaline Phosphatase 259 U/L (38-126); Anion Gap 6 mmol/L; Blood Urea Nitrogen 6 mg/dL (9-20); Calcium 8.6 mg/dL (8.4-10.2); Carbon Dioxide 24 mmol/L (22-30); Chloride 103 mmol/L (98-107); Glucose 144 mg/dL (74-99); Lipase 206 U/L (23-300); Non-African American GFR(CKD) >90 (>60 ml/min/1.73 sqM); Potassium 3.8 mmol/L (3.5-5.1); Sodium 133 mmol/L (137-145); Total Bilirubin 2.6 mg/dL (0.2-1.3); Total Protein 6.2 g/dL (6.3-8.2)
[2021-03-13] MEDS ORDERED: LIDOCAINE 1% INJ 10MG/ML (20 ML MDV) ONE (10:50)
[2021-03-13] MEDS ORDERED: PROPOFOL 10 MG/ML 20 ML VIAL IV ONE (10:50)
[2021-03-13] MEDS ORDERED: SUCCINYLCHOLINE CHLORIDE 100 MG/5 ML SYR IV ONE (10:50)
[2021-03-13] MEDS ORDERED: IV FLUID CONTINUATION 400 ML IV ONE (10:54)
[2021-03-13] MEDS ORDERED: IOPAMIDOL-300 50ML BTL MISCELLANE ONE ×2 (11:21→11:40)
--- NOTE | 2021-03-13 11:48 | P.PCN ---
Date of Procedure: 03/13/21 Procedure(s) Performed: Brief history: Patient is a 70-year-old white male scheduled for an ERCP as part of evaluation of abdominal pain and elevated serum transaminases and jaundice for the last 2 days' duration. He has remote history of cholecystectomy for symptomatic gallstones. LFTs revealed a bilirubin of 4.5 and serum transaminases in the range of 500s. Ultrasound did show mild dilation of the CBD. Procedure performed: ERCP with biliary sphincterotomy and balloon stone extraction Preoperative diagnoses: elevated LFTs, jaundice and epigastric area IV sedation per anesthesia: Procedure: After informed consent was obtained from the patient and after the risks benefits and complications including bleeding perforation and pancreatitis explained in detail the patient was brought into the endoscopy unit. The patient was placed in prone position and IV conscious sedation was administered by anesthesia under continuous monitoring. The Olympus side-viewing duodenoscope was then inserted into the mouth and esophagus intubated without any difficulty. The scope was gradually advanced into the stomach and duodenum. The major papilla was identified without any difficulty. initial cannulation resulted in opacification of the pancreatic duct that appeared normal. Subsequently using the guidewire technique the common bile duct was cannulated without any difficulty and upon injection of the dye the common bile duct appeared dilated measuring 1.5 cm in diameter. There were 3 large filling defects identified in the mid and proximal proximal CBD. At this time the catheter was removed and was exchanged with a biliary sphincterotome. A biliary sphincterotomy was performed at 11 o'clock position and was extended to 1 mm in length. Following this 11.5 mm balloon was passed over the guidewire into the proximal CBD gently inflated and withdrawn. 3 common bile duct stones were ex tracted H measuring between 7 mm to 1 cm in size. Findings with the occlusion cholangiogram was performed. No other filling defects were noted. Patient tolerated the procedure well. Impression: Normal-appearing pancreatic duct Dilated common bile measuring 1.5 cm in diameter with three filling defects measuring between 7 mm to 1 cm in size, status post biliary sphincterotomy followed by balloon stone extraction as described above. Recommendations: The findings of this examination were discussed with the patient . He will be started on a clear liquid diet today. Repeat labs in the morning. He can be discharged home tomorrow.
[2021-03-13] MEDS: FERROUS SULFATE 325 MG TAB PO SCH ×3 (11:49→20:15)
--- NOTE | 2021-03-13 12:40 | FL ---
Fluoroscopy INDICATION: Pain FINDINGS: Fluoroscopy time: 1 minute 40 seconds. Images obtained: 2. IMPRESSIONS: 1. Documentation of fluoroscopy.
[2021-03-13 13:14] LABS: Ceruloplasmin 24.8 mg/dL (20.0-60.0)
[2021-03-13] MEDS: PANTOPRAZOLE 40 MG/10 ML VIAL IVP SCH ×2 (13:25→20:15)
[2021-03-13] MEDS: FOLIC ACID 1 MG TAB PO SCH (13:26)
[2021-03-13] MEDS: ASPIRIN 81 MG PO SCH (13:26)
[2021-03-13] MEDS: MAGNESIUM OXIDE 400 MG TAB PO SCH (13:27)
[2021-03-13] MEDS: POTASSIUM CHLORIDE ER 20 MEQ TAB.ER PO SCH (13:31)
--- NOTE | 2021-03-13 14:09 | PN ---
PROGRESS NOTE CHIEF COMPLAINT: Elevated liver function studies and epigastric pain. HISTORY OF PRESENT ILLNESS: This gentleman is going down today for an ERCP. The pain is slightly better. PHYSICAL EXAMINATION: Chest is clear. Cardiac exam is normal. Abdomen is soft, nontender. IMPRESSION: 1. Elevated liver function studies. 2. Possible obstructive jaundice. PLAN: ERCP today. MMODL / IJN: [id number] /
[2021-03-14] MEDS: ACETAMINOPHEN TAB 500 MG TAB PO PRN ×2 (02:20→22:33)
[2021-03-14] MEDS: PANTOPRAZOLE 40 MG/10 ML VIAL IVP SCH (07:20)
[2021-03-14] MEDS: FERROUS SULFATE 325 MG TAB PO SCH ×3 (07:21→20:39)
[2021-03-14] MEDS: ASPIRIN 81 MG PO SCH (07:21)
[2021-03-14] MEDS: POTASSIUM CHLORIDE ER 20 MEQ TAB.ER PO SCH (07:22)
[2021-03-14] MEDS: amLODIPine 5 MG TAB PO SCH (07:22)
[2021-03-14] MEDS: FOLIC ACID 1 MG TAB PO SCH (07:22)
[2021-03-14] MEDS: SPIRONOLACTONE 25 MG TAB PO SCH ×3 (07:22→20:39)
[2021-03-14] MEDS: SODIUM CHLORIDE 0.9% 1,000 ML IV SCH ×2 (07:22→15:12)
[2021-03-14] MEDS: MAGNESIUM OXIDE 400 MG TAB PO SCH (07:22)
[2021-03-14] MEDS: DOXAZOSIN 2 MG TAB PO SCH (07:22)
[2021-03-14 09:10] LABS: ALT 286 U/L (4-49); AST 223 U/L (17-59); African American GFR (CKD) >90 (>60 ml/min/1.73 sqM); Albumin 2.9 g/dL (3.5-5.0); Alkaline Phosphatase 265 U/L (38-126); Anion Gap 4 mmol/L; Blood Urea Nitrogen 6 mg/dL (9-20); Calcium 8.3 mg/dL (8.4-10.2); Carbon Dioxide 24 mmol/L (22-30); Chloride 107 mmol/L (98-107); Glucose 227 mg/dL (74-99); Non-African American GFR(CKD) 90 (>60 ml/min/1.73 sqM); Potassium 3.9 mmol/L (3.5-5.1); Sodium 135 mmol/L (137-145); Total Bilirubin 2.3 mg/dL (0.2-1.3); Total Protein 5.9 g/dL (6.3-8.2)
--- NOTE | 2021-03-14 15:05 | P.PN ---
Subjective Progress Note Date: 03/14/21 Principal diagnosis: Abdominal pain, elevated LFTs This is a 70-year-old -[place] male who presented to the hospital with abdominal pain. He is status post cholecystectomy in his remote past. He was noted to have elevated LFTs, jaundice presentation. Yesterday the patient underwent an ERCP with the 3 stone extraction. Today the patient is seen and evaluated lying in bed. He is tolerating clear liquid diet. He denies any abdominal pain, nausea, or vomiting. His liver enzymes are trending down. Objective - Vital Signs Vital signs: Vital Signs Temp 99.3 F 03/14/21 05:39 Pulse 65 03/14/21 05:39 Resp 16 03/14/21 05:39 BP 144/81 03/14/21 05:39 Pulse Ox 98 03/14/21 05:39 Intake & Output 03/13/21 03/14/21 03/14/21 18:59 06:59 18:59 Intake Total 200 1877 Output Total 1800 Balance 200 77 Intake: IV 200 Intake, IV Titration 1200 Amount Sodium Chloride 0.9% 1, 1200 000 ml @ 100 mls/hr IV . Q10H CAYETANO Rx#:[id number] Oral 677 Output: Urine 1800 Other: # Voids 3 - Exam General appearance: The patient is alert, oriented, appears in no acute distress. HET: Head is normocephalic and atraumatic. Conjunctiva pink. Sclera anicteric. Neck: Supple without lymphadenopathy. Abdomen: Soft, nontender, nondistended with bowel sounds. No guarding or rigidity. Extremities: Normal skin color and turgor. No pedal edema Skin: No rashes, no jaundice Neurological: No focal deficits. Alert and oriented 3. - Labs CBC & Chem 7: 03/12/21 05:16 03/14/21 08:39 Labs: Abnormal Lab Results - Last 24 Hours (Table) 03/13/21 03/14/21 Range/Units 09:26 08:39 Sodium 133 L 135 L (137-145) mmol/L BUN 6 L 6 L (9-20) mg/dL Glucose 144 H 227 H (74-99) mg/dL Calcium 8.3 L (8.4-10.2) mg/dL Total Bilirubin 2.6 H 2.3 H (0.2-1.3) mg/dL AST 242 H 223 H (17-59) U/L ALT 347 H 286 H (4-49) U/L Alkaline Phosphatase 259 H 265 H (38-126) U/L Total Protein 6.2 L 5.9 L (6.3-8.2) g/dL Albumin 3.2 L 2.9 L (3.5-5.0) g/dL Assessment and Plan (1) Epigastric abdominal pain Narrative/Plan: This is a 70-year-old pleasant -[place] male admitted to the hospital with intermittent episodes of epigastric pain for last 2 weeks duration. During this hospitalization he was noted to have elevated LFTs and jaundice with a bilirubin of 4.3. He had a CAT scan of the abdomen and pelvis done that showed evidence of cholecystectomy but no other acute abnormality noted in the abdomen and pelvis. Then had an ultrasound of the abdomen that showed a CBD measuring 5 mm in prominence of the bile duct with increased echogenicity of the liver noted. Clinical presentation and biochemical parameters are more suggestive of retained common bile duct stone. Current Visit: Yes Status: Acute Code(s): R10.13 - EPIGASTRIC PAIN SNOMED Code(s): 96717373 (2) Elevated LFTs Current Visit: Yes Status: Acute Code(s): R79.89 - OTHER SPECIFIED ABNORMAL FINDINGS OF BLOOD CHEMISTRY SNOMED Code(s): 360868578 (3) Hyperbilirubinemia Current Visit: Yes Status: Acute Code(s): E80.6 - OTHER DISORDERS OF BILIRUBIN METABOLISM SNOMED Code(s): 05090813 (4) COVID-19 virus infection Current Visit: Yes Status: Acute Code(s): U07.1 - COVID-19 SNOMED Code(s): 359466941 Plan: 1. Symptomatic and supportive care 2. Patient is status post ERCP with stone extraction 3. Repeat CMP 4. Increase to low-fat diet 5. Patient may be discharged home from a gastroenterology standpoint Thank you for this consultation Dr. Carlos A Hyde I agree with the dictator's note, documented as a scribe by Fartun Lawler.
--- NOTE | 2021-03-14 15:53 | XR ---
EXAMINATION TYPE: XR chest 1V portable DATE OF EXAM: 03/14/2021 COMPARISON: 12/12/2012 INDICATION: Covid TECHNIQUE: Single frontal view of the chest is obtained. FINDINGS: The heart size is enlarged. The pulmonary vasculature is normal. The lungs are clear. IMPRESSION: 1. No acute pulmonary process.
--- NOTE | 2021-03-14 18:17 | PN ---
PROGRESS NOTE DATE OF SERVICE: 03/14/2021 CHIEF COMPLAINT: Elevated liver function studies and epigastric pain. HISTORY OF PRESENT ILLNESS: This gentleman is doing fairly well. His pain is gone. Apparently he was found at ERCP to have a common duct stone or stones. He underwent sphincterotomy with removal of the stones. Other than that, he is doing fairly well. PHYSICAL EXAMINATION: Chest is clear. Cardiac exam is normal. The abdomen is soft and nontender. His temperature is elevated, however. IMPRESSION: 1. Obstructive jaundice due to biliary calculus. 2. Elevated temperature. 3. Positive COVID-19 swab. 4. Previous cerebrovascular accident. PLAN: He is doing well. We will monitor his temperature. We will also obtain a chest x-ray. MMODL / IJN: [id number] /
[2021-03-14 20:38] LABS: Glucose,Whole Blood 177 mg/dL (75-99)
[2021-03-15] MEDS: SODIUM CHLORIDE 0.9% 1,000 ML IV SCH ×2 (06:22→17:16)
[2021-03-15] MEDS: PANTOPRAZOLE 40 MG/10 ML VIAL IVP SCH ×3 (06:22→21:48)
[2021-03-15] MEDS: POTASSIUM CHLORIDE ER 20 MEQ TAB.ER PO SCH (08:19)
[2021-03-15] MEDS: FOLIC ACID 1 MG TAB PO SCH (08:19)
[2021-03-15] MEDS: FERROUS SULFATE 325 MG TAB PO SCH ×3 (08:19→21:49)
[2021-03-15] MEDS: MAGNESIUM OXIDE 400 MG TAB PO SCH (08:19)
[2021-03-15] MEDS: ASPIRIN 81 MG PO SCH (08:19)
[2021-03-15] MEDS: SPIRONOLACTONE 25 MG TAB PO SCH ×3 (08:20→21:49)
[2021-03-15] MEDS: DOXAZOSIN 2 MG TAB PO SCH (08:20)
[2021-03-15] MEDS: amLODIPine 5 MG TAB PO SCH (08:20)
[2021-03-15] MEDS: ACETAMINOPHEN TAB 500 MG TAB PO PRN ×3 (09:14→21:48)
--- NOTE | 2021-03-15 10:32 | P.PN ---
Subjective Progress Note Date: 03/15/21 Principal diagnosis: Abdominal pain, elevated LFTs This is a 70-year-old -[place] male who presented to the hospital with abdominal pain. He is status post cholecystectomy in his remote past. He was noted to have elevated LFTs, jaundice presentation. The patient underwent an ERCP with the 3 stone extraction two days ago. Today the patient is seen and evaluated sitting up in the chair. He is tolerating a low fat diet. He denies any abdominal pain, nausea, or vomiting. His liver enzymes are trending down. Objective - Vital Signs Vital signs: Vital Signs Temp 100.1 F H 03/15/21 09:26 Pulse 74 03/15/21 09:26 Resp 19 03/15/21 09:26 BP 152/95 03/15/21 09:26 Pulse Ox 93 L 03/15/21 09:26 Intake & Output 03/14/21 03/15/21 03/15/21 18:59 06:59 18:59 Output Total 500 200 Balance -500 -200 Output: Urine 500 200 - Exam General appearance: The patient is alert, oriented, appears in no acute distress. HET: Head is normocephalic and atraumatic. Conjunctiva pink. Sclera anicteric. Neck: Supple without lymphadenopathy. Abdomen: Soft, nontender, nondistended with bowel sounds. No guarding or ri gidity. Extremities: Normal skin color and turgor. No pedal edema Skin: No rashes, no jaundice Neurological: No focal deficits. Alert and oriented 3. - Labs CBC & Chem 7: 03/12/21 05:16 03/14/21 08:39 Labs: Abnormal Lab Results - Last 24 Hours (Table) 03/14/21 Range/Units 20:33 POC Glucose (mg/dL) 177 H (75-99) mg/dL Assessment and Plan (1) Epigastric abdominal pain Narrative/Plan: This is a 70-year-old pleasant -[place] male admitted to the hospital with intermittent episodes of epigastric pain for last 2 weeks duration. During this hospitalization he was noted to have elevated LFTs and jaundice with a bilirubin of 4.3. He had a CAT scan of the abdomen and pelvis done that showed evidence of cholecystectomy but no other acute abnormality noted in the abdomen and pelvis. Then had an ultrasound of the abdomen that showed a CBD measuring 5 mm in prominence of the bile duct with increased echogenicity of the liver noted. Clinical presentation and biochemical parameters are more suggestive of retained common bile duct stone. Current Visit: Yes Status: Acute Code(s): R10.13 - EPIGASTRIC PAIN SNOMED Code(s): 99210863 (2) Elevated LFTs Current Visit: Yes Status: Acute Code(s): R79.89 - OTHER SPECIFIED ABNORMAL FINDINGS OF BLOOD CHEMISTRY SNOMED Code(s): 702537130 (3) Hyperbilirubinemia Current Visit: Yes Status: Acute Code(s): E80.6 - OTHER DISORDERS OF BILIRUBIN METABOLISM SNOMED Code(s): 44862718 (4) COVID-19 virus infection Current Visit: Yes Status: Acute Code(s): U07.1 - COVID-19 SNOMED Code(s): 212054790 Plan: 1. Symptomatic and supportive care 2. Patient is status post ERCP with stone extraction 3. Diet as tolerated 5. Patient may be discharged home from a gastroenterology standpoint Thank you for this consultation Dr. Carlos A Hyde I agree with the dictator's note, documented as a scribe by Fartun Lawler.
[2021-03-15 12:20] LABS: Basophils % (A) 0 %; Eosinophils % (A) 0 %; HCT 41.7 % (39.0-53.0); HGB 14.2 gm/dL (13.0-17.5); Lymphocytes # (A) 1.1 k/uL (1.0-4.8); Lymphocytes % (A) 29 %; MCH 33.4 pg (25.0-35.0); MCHC 34.1 g/dL (31.0-37.0); MCV 97.9 fL (80.0-100.0); Mean Platelet Volume 8.4; Monocytes # (A) 0.2 k/uL (0-1.0); Monocytes % (A) 6 %; Neutrophils # (A) 2.4 k/uL (1.3-7.7); Neutrophils % (A) 64 %; Platelet Count 131 k/uL (150-450); RBC 4.26 m/uL (4.30-5.90); RDW 13.7 % (11.5-15.5); WBC 3.8 k/uL (3.8-10.6)
[2021-03-15 12:33] LABS: ALT 235 U/L (4-49); AST 137 U/L (17-59); African American GFR (CKD) >90 (>60 ml/min/1.73 sqM); Albumin 3.4 g/dL (3.5-5.0); Albumin/Globulin Ratio 1.1; Alkaline Phosphatase 263 U/L (38-126); Anion Gap 8 mmol/L; Blood Urea Nitrogen 8 mg/dL (9-20); Calcium 8.7 mg/dL (8.4-10.2); Carbon Dioxide 24 mmol/L (22-30); Chloride 102 mmol/L (98-107); Globulin 3.2 g/dL; Glucose 168 mg/dL (74-99); Lipase 218 U/L (23-300); Non-African American GFR(CKD) >90 (>60 ml/min/1.73 sqM); Potassium 3.8 mmol/L (3.5-5.1); Sodium 134 mmol/L (137-145); Total Bilirubin 1.8 mg/dL (0.2-1.3); Total Protein 6.6 g/dL (6.3-8.2)
[2021-03-15 13:47] LABS: Appearance,Urine Clear (Clear); Bilirubin,Urine Negative (Negative); Blood,Urine Negative (Negative); Color,Urine Yellow; Glucose,Urine (UA) 3+ (Negative); Ketones,Urine Negative (Negative); Leukocyte Esterase,Urine Negative (Negative); Nitrite,Urine Negative (Negative); Protein,Urine Trace (Negative); Specific Gravity,Urine 1.023 (1.001-1.035)
[2021-03-15 14:05] LABS: African American GFR (CKD) 99.9 (60.0-200.0); Albumin 3.6 g/dL (3.80-4.90); Albumin/Globulin Ratio 1.5 (1.60-3.17); Anion Gap 11.2 mmol/L (4.00-12.00); BUN/Creat Ratio 8.89 Ratio (12.00-20.00); Calcium 8.9 mg/dL (8.7-10.3); Carbon Dioxide 23.8 mmol/L (21.6-31.8); Globulin 2.4 g/dL (1.6-3.3); Non-African American GFR(CKD) 86.2 (60.0-200.0); Potassium 3.9 mmol/L (3.5-5.5); Total Bilirubin 1.8 mg/dL (0.3-1.2)
--- NOTE | 2021-03-15 17:25 | PN ---
PROGRESS NOTE DATE OF SERVICE: 03/15/2021 CHIEF COMPLAINT: Common bowel duct obstruction. HISTORY OF PRESENT ILLNESS: This gentleman is doing well. He has had no chills, shortness of breath, abdominal pain, etc. He would like to go home. However, he has been running temperatures at night. PHYSICAL EXAMINATION: His chest is clear. Cardiac exam is normal. The abdomen is soft and nontender. IMPRESSION: 1. Fever of undetermined origin. 2. Common bile duct obstruction, status post sphincterotomy and stone retrieval. PLAN: 1. Chest x-ray. 2. Continue to follow temperature. 3. Cultures. 4. Infectious disease consult. MMODL / IJN: [id number] /
[2021-03-15 20:34] LABS: C Reactive Protein 2.7 mg/dL (<1.0)
[2021-03-15] MEDS: AMPICILLIN-SULBACTAM 3 GM in SODIUM CHLORIDE 0.9% 100 ML IVPB SCH (21:48)
--- NOTE | 2021-03-16 03:07 | CONS ---
CONSULTATION DATE OF SERVICE: 03/15/2021 REASON FOR STAY: Fever, of unknown origin. HISTORY OF PRESENT ILLNESS: The patient is a 70-year-old male with a past medical history significant for cholecystectomy. This patient presented to the ER at [facility] 4 days ago on March 11 for evaluation of abdominal pain. The patient's pain has been mostly in the epigastric area and has been going on for about a week. The patient describes the pain to be more sharp in nature with intensity almost 15 out of 10 by the time he presented to the hospital. The patient did have associated nausea, no vomiting. Denies having any diarrhea. With these symptoms, the patient was evaluated by the ER physician. On arrival to the ER, the patient was afebrile. Subsequently did spike a fever of 99.9 and a fever of 101.7 last evening and low-grade fever this morning that has prompted this infectious disease consultation. Workup so far include the patient did have an elevated liver enzymes and a CT of abdomen and pelvis was done which did not show any dilation of the CBD. There was evidence of clips from cholecystectomy. No other acute abnormality on the CT abdomen and pelvis per Radiology. The patient was evaluated by GI Services and the patient did have an ERCP completed on the with evidence of CBD stone, status post sphincterotomy and removal of the CBD stones. The patient did not have any blood cultures done on this admission despite him having a fever. He did have a positive Covid test. However, the patient did not have any symptoms or shortness of breath or cough and the patient did have a chest x-ray completed yesterday with no acute pulmonary process. Infectious disease was consulted today for further management of his fever of unknown origin. REVIEW OF SYSTEMS: Positive points have been mentioned in HPI. Rest of the systems are negative. PAST MEDICAL HISTORY: CVA, TIA, hypertension. PAST SURGICAL HISTORY: Cholecystectomy and hernia repair. SOCIAL HISTORY: Denies smoking, drinking or drug use. FAMILY HISTORY: No pertinent findings noticed. ALLERGIES: No known drug allergies. MEDICATIONS: The patient is currently on aspirin, Lipitor, vitamin D3, Cardura, Aldactone, Glucophage, Tylenol, iron sulfate, omeprazole and zinc sulfate. PHYSICAL EXAMINATION: Blood pressure is 162/96, pulse of 73, temperature 98, T-max is 101. He is 98% on room air. General description is an elderly male up in the chair in no distress. No tachypnea or accessory muscles of respiration use. HEENT: Examination shows no pallor or scleral icterus. Oral mucous membrane is dry. NECK: Trachea central. No thyromegaly. LUNGS unlabored breathing, decreased intensity of breath sounds. No wheeze. HEART: S1, S2. Regular rate and rhythm. ABDOMEN: Soft, no tenderness. No rigidity. No guarding. No organomegaly. EXTREMITIES: No edema of the feet. SKIN examination: No rash or mass palpable. NEUROLOGICAL: Patient is awake, alert, oriented x3. Mood and affect normal. LABS: Hemoglobin is 14.8, white count 3.8. BUN of 8, creatinine 0.81. Liver enzymes has slightly improved since admission. Urine is negative. Chest x-ray report was negative. DIAGNOSTIC IMPRESSION AND PLAN: Patient presented to hospital with abdominal pain in this patient who did have evidence of a choledocholithiasis. The patient did have a low-grade fever, status post ERCP with extraction of the stone on March 13 and subsequently spiked a fever of 101 degrees Fahrenheit the next day. Concern likely for ascending cholangitis to the likely source of this fever as currently no other obvious focus of infection. The patient with negative UA. He did have positive Covid test. However, the patient did not have respiratory symptoms. Currently on room air and a chest x-ray reported to be negative. PLAN: 1. Blood cultures x2 stat. 2. Check a CRP, procalcitonin, and LDH, D. dimer. 3. We will add Unasyn 3 grams q.6 hours. 4. We will follow on clinical condition to further adjust medication if needed. Thank you for this consultation. Will follow this patient along with you. MMODL / IJN: [id number] /
[2021-03-16] MEDS: AMPICILLIN-SULBACTAM 3 GM in SODIUM CHLORIDE 0.9% 100 ML IVPB SCH ×6 (03:22→23:11)
[2021-03-16] MEDS: SODIUM CHLORIDE 0.9% 1,000 ML IV SCH ×3 (03:23→19:13)
[2021-03-16] MEDS: FOLIC ACID 1 MG TAB PO SCH (09:43)
[2021-03-16] MEDS: ASPIRIN 81 MG PO SCH (09:43)
[2021-03-16] MEDS: MAGNESIUM OXIDE 400 MG TAB PO SCH (09:43)
[2021-03-16] MEDS: ACETAMINOPHEN TAB 500 MG TAB PO PRN ×2 (09:43→22:15)
[2021-03-16] MEDS: POTASSIUM CHLORIDE ER 20 MEQ TAB.ER PO SCH (09:43)
[2021-03-16] MEDS: FERROUS SULFATE 325 MG TAB PO SCH ×3 (09:43→20:55)
[2021-03-16] MEDS: SPIRONOLACTONE 25 MG TAB PO SCH ×3 (09:43→20:55)
[2021-03-16] MEDS: DOXAZOSIN 2 MG TAB PO SCH (09:43)
[2021-03-16] MEDS: amLODIPine 5 MG TAB PO SCH (09:43)
[2021-03-16] MEDS: PANTOPRAZOLE 40 MG/10 ML VIAL IVP SCH ×2 (09:44→20:55)
--- NOTE | 2021-03-16 10:19 | PN ---
PROGRESS NOTE DATE OF SERVICE: 03/16/2021 INTERVAL HISTORY: Patient is a 70-year-old pleasant male admitted to the hospital with severe epigastric pain, elevated LFTs. He underwent ERCP 3 days ago and was noted to have multiple CBD stones that were extracted. The patient is overall doing much better. He was also noted to have COVID-19 infection but does not have any symptoms however he continues to have low-grade fevers and T-max was 100.3 last night. He denies any abdominal pain. No cough. No shortness of breath. No abdominal pain. PHYSICAL EXAMINATION: GENERAL: He appears comfortable. VITAL SIGNS: Stable. Blood pressure 148/76, pulse rate 69, temperature 100.3. HEENT: Examination unremarkable. Conjunctivae are pink. Sclerae anicteric. Oral cavity no lesions. NECK: No JVD or lymph node enlargement. HEART: Regular rate and rhythm. ABDOMEN: Soft, bowel sounds are positive, no organomegaly. EXTREMITIES: No pedal edema. NEURO: He is alert and oriented x3. No focal deficits. LABS: No labs available from today. IMPRESSION: 1. Choledocholithiasis status post ERCP with CBD stone extraction 3 days ago. Patient clinically doing well. 2. COVID-19 infection with low-grade fevers, being watched closely. RECOMMENDATIONS: 1. Continue with symptomatic and supportive care. 2. Await labs from today. 3. Monitor him closely for pulmonary symptoms. 4. Will follow with you closely. Thank you for this consultation. MMODL / IJN: [id number] /
--- NOTE | 2021-03-16 14:32 | PN ---
PROGRESS NOTE DATE OF SERVICE: 03/16/2021. CHIEF COMPLAINT: Obstructive jaundice. HISTORY OF PRESENT ILLNESS: This gentleman is doing well, but he is now running low-grade fevers without any respiratory symptoms. He has had no problems with taste or smell. Liver enzymes are not coming down quickly either. PHYSICAL EXAMINATION: Chest is clear. Cardiac exam is normal. The abdomen is slightly protuberant and nontender. Extremities are normal. IMPRESSION: 1. Status post obstructive jaundice. 2. Elevated liver function studies. 3. Fever, undetermined etiology. 4. COVID positive nasal swab. PLAN: Continue to monitor his liver function studies and temperature. He is being seen by Infectious Disease. MMODL / IJN: [id number] /
--- NOTE | 2021-03-16 18:45 | PN ---
PROGRESS NOTE DATE OF SERVICE: 03/16/2021. REASON FOR FOLLOWUP: Fever, likely ascending cholangitis. INTERVAL HISTORY: The patient overall fever pattern has improved. Currently temperature 100.3 earlier this morning. The patient mentioned he is feeling better. Denies having any chest pain, shortness of breath or cough. No abdominal pain or diarrhea. PHYSICAL EXAMINATION: Blood pressure 126/83, pulse of 77, temperature 99.5. He is 97% on room air. General description: The patient is an elderly male up in the chair in no distress. Respiratory system: Unlabored breathing, clear to auscultation anteriorly. Heart S1, S2. Regular rate and rhythm. Abdomen soft, no tenderness. LABS: No new labs have been obtained today. Blood culture obtained yesterday so far negative. DIAGNOSTIC IMPRESSION AND PLAN: 1. Patient with a fever in this patient admitted to the hospital with obstructive jaundice with retained CBD stone status post ERCP with likely concern for ascending cholangitis. Unasyn has been added yesterday, seems to have responded. To continue and monitor clinical course closely. 2. Patient with Covid test positive. However, the patient not hypoxic, therapy for the Covid. MMODL / IJN: [id number] /
[2021-03-17] MEDS: AMPICILLIN-SULBACTAM 3 GM in SODIUM CHLORIDE 0.9% 100 ML IVPB SCH ×3 (05:03→17:19)
[2021-03-17] MEDS: SODIUM CHLORIDE 0.9% 1,000 ML IV SCH ×3 (05:05→22:16)
[2021-03-17] MEDS: amLODIPine 5 MG TAB PO SCH (08:30)
[2021-03-17] MEDS: FERROUS SULFATE 325 MG TAB PO SCH ×3 (08:30→22:15)
[2021-03-17] MEDS: POTASSIUM CHLORIDE ER 20 MEQ TAB.ER PO SCH (08:30)
[2021-03-17] MEDS: MAGNESIUM OXIDE 400 MG TAB PO SCH (08:30)
[2021-03-17] MEDS: ASPIRIN 81 MG PO SCH (08:30)
[2021-03-17] MEDS: FOLIC ACID 1 MG TAB PO SCH (08:30)
[2021-03-17] MEDS: SPIRONOLACTONE 25 MG TAB PO SCH ×3 (08:30→22:15)
[2021-03-17] MEDS: PANTOPRAZOLE 40 MG/10 ML VIAL IVP SCH ×2 (08:31→22:15)
[2021-03-17] MEDS: DOXAZOSIN 2 MG TAB PO SCH (08:33)
[2021-03-17] MEDS: ACETAMINOPHEN TAB 500 MG TAB PO PRN ×2 (15:57→22:20)
[2021-03-17 17:38] LABS: Basophils % (A) 1 %; Eosinophils % (A) 0 %; HCT 40.2 % (39.0-53.0); HGB 13.8 gm/dL (13.0-17.5); Lymphocytes # (A) 0.9 k/uL (1.0-4.8); Lymphocytes % (A) 21 %; MCH 33.3 pg (25.0-35.0); MCHC 34.3 g/dL (31.0-37.0); Mean Platelet Volume 8.4; Monocytes # (A) 0.2 k/uL (0-1.0); Monocytes % (A) 5 %; Neutrophils % (A) 71 %; Platelet Count 116 k/uL (150-450); RBC 4.14 m/uL (4.30-5.90); RDW 13.4 % (11.5-15.5); WBC 4.3 k/uL (3.8-10.6)
--- NOTE | 2021-03-17 18:06 | PN ---
PROGRESS NOTE DATE OF SERVICE: 03/17/2021 REASON FOR FOLLOWUP: 1. Fever likely ascending cholangitis. 2. COVID-19 infection. INTERVAL HISTORY: Patient did spike a fever last night of 101.9. The patient is afebrile since then. The patient is currently breathing comfortably. Denies any chest pain or shortness of breath or cough. No abdominal pain or diarrhea. PHYSICAL EXAMINATION: Blood pressure 135/86, pulse of 88. Temperature 99.6. He is 95% on room air. General description is an elderly male lying in bed in no distress. Respiratory system: Unlabored breathing, clear to auscultation anteriorly. Heart S1, S2. Regular rate and rhythm. Abdomen: Soft, no tenderness. LABS: No new labs have been obtained today. Blood culture has been negative. DIAGNOSTIC IMPRESSION AND PLAN: Patient with fever in this patient admitted to the hospital with obstructive jaundice with retained CBD stone status post ERCP and removal of the stone with subsequent fever, concern for possible cholangitis. Patient is currently on Unasyn. Still spiking a fever, the patient seems to be doing clinically well and culture has been negative. We will repeat his inflammatory markers. Continue with Unasyn and evaluate the patient tomorrow. Continue supportive care. MMODL / IJN: [id number] /
[2021-03-17 18:10] LABS: ALT 128 U/L (4-49); AST 74 U/L (17-59); African American GFR (CKD) >90 (>60 ml/min/1.73 sqM); Albumin 3.4 g/dL (3.5-5.0); Albumin/Globulin Ratio 1.1; Alkaline Phosphatase 207 U/L (38-126); Anion Gap 7 mmol/L; Blood Urea Nitrogen 8 mg/dL (9-20); Calcium 8.6 mg/dL (8.4-10.2); Carbon Dioxide 23 mmol/L (22-30); Chloride 100 mmol/L (98-107); Globulin 3.1 g/dL; Glucose 155 mg/dL (74-99); Non-African American GFR(CKD) >90 (>60 ml/min/1.73 sqM); Sodium 130 mmol/L (137-145); Total Bilirubin 1.2 mg/dL (0.2-1.3); Total Protein 6.5 g/dL (6.3-8.2)
--- NOTE | 2021-03-17 18:16 | XR ---
EXAMINATION TYPE: XR chest 1V portable DATE OF EXAM: 03/17/2021 COMPARISON: 03/14/2021 HISTORY: Short of breath TECHNIQUE: Single view FINDINGS: There is no heart failure nor confluent pneumonic infiltrate. Costophrenic angles are clear . Heart size is fairly normal. There are no hilar masses. There is some coarse lung markings left low er lobe. IMPRESSION: There is some mild interstitial infiltrate left lower lobe increased compared to recent e xam. Normal heart.
--- NOTE | 2021-03-17 19:13 | PN ---
PROGRESS NOTE DATE OF SERVICE: 03/17/2021 CHIEF COMPLAINT: Elevated temperature. HISTORY OF PRESENT ILLNESS: This gentleman is complaining of low back pain today. It is not in the flank area. He has had no abdominal pain. He has had no chills and he has had no cough. PHYSICAL EXAMINATION: Chest is clear. The cardiac exam is normal. The abdomen is slightly protuberant and nontender. There are no abdominal masses. Flanks nontender. IMPRESSION: 1. Low back pain, etiology unknown. 2. Fever, undetermined etiology. 3. Status post biliary obstruction. 4. Positive Covid swab. PLAN: 1. Repeat laboratory studies, chest x-ray. 2. Lipase. 3. Continue with evaluation of his fever. MMODL / IJN: [id number] /
[2021-03-18] MEDS: AMPICILLIN-SULBACTAM 3 GM in SODIUM CHLORIDE 0.9% 100 ML IVPB SCH ×3 (00:14→15:06)
[2021-03-18] MEDS: ASPIRIN 81 MG PO SCH (08:49)
[2021-03-18] MEDS: MAGNESIUM OXIDE 400 MG TAB PO SCH ×2 (08:49→08:50)
[2021-03-18] MEDS: ACETAMINOPHEN TAB 500 MG TAB PO PRN ×2 (08:49→22:45)
[2021-03-18] MEDS: amLODIPine 5 MG TAB PO SCH (08:49)
[2021-03-18] MEDS: FOLIC ACID 1 MG TAB PO SCH (08:49)
[2021-03-18] MEDS: FERROUS SULFATE 325 MG TAB PO SCH ×3 (08:49→20:34)
[2021-03-18] MEDS: POTASSIUM CHLORIDE ER 20 MEQ TAB.ER PO SCH (08:49)
[2021-03-18] MEDS: SPIRONOLACTONE 25 MG TAB PO SCH ×3 (08:49→20:34)
[2021-03-18] MEDS: PANTOPRAZOLE 40 MG/10 ML VIAL IVP SCH ×2 (08:49→20:33)
[2021-03-18] MEDS: DOXAZOSIN 2 MG TAB PO SCH (08:50)
[2021-03-18 10:51] LABS: C Reactive Protein 3.9 mg/dL (0.0-0.8); Ferritin 1215.5 ng/mL (22.0-322.0)
[2021-03-18] MEDS: IOPAMIDOL CONTRAST (ORAL USE) VIAL PO PRN ×2 (12:52→13:51)
[2021-03-18 14:54] VITALS: BMI 34.9
[2021-03-18 15:43] LABS: Basophils % (A) 1 %; Eosinophils % (A) 0 %; HCT 40.2 % (39.0-53.0); HGB 13.5 gm/dL (13.0-17.5); Lymphocytes # (A) 1.4 k/uL (1.0-4.8); Lymphocytes % (A) 30 %; MCH 33.3 pg (25.0-35.0); MCHC 33.7 g/dL (31.0-37.0); MCV 98.8 fL (80.0-100.0); Mean Platelet Volume 8.9; Monocytes # (A) 0.2 k/uL (0-1.0); Monocytes % (A) 5 %; Neutrophils % (A) 62 %; Platelet Count 127 k/uL (150-450); RBC 4.07 m/uL (4.30-5.90); RDW 13.5 % (11.5-15.5); WBC 4.8 k/uL (3.8-10.6)
--- NOTE | 2021-03-18 15:55 | CT ---
EXAMINATION TYPE: CT abdomen pelvis w con DATE OF EXAM: 03/18/2021 COMPARISON: CT 1 week earlier. HISTORY: Fever unknown origin CT DLP: 71 mGycm, Automated Exposure Control for Dose Reduction was Utilized. CONTRAST: CT scan of the abdomen and pelvis is performed with oral and with IV Contrast, patient injected with 100 mL of Isovue 300. FINDINGS: LUNG BASES: Stable cardiomegaly. Stable tiny pericardial effusion. Stable mild bibasilar scarring and /or atelectasis just above the diaphragms. LIVER/GB: Cholecystectomy clips are redemonstrated. Visualized liver heterogeneously isodense relativ e to spleen consistent with mild diffuse fatty infiltration. PANCREAS: No significant abnormality is seen. SPLEEN: No significant abnormality is seen. ADRENALS: Persistent nonspecific asymmetric thickening to left adrenal gland axial image 21. KIDNEYS: Symmetric cortical medullary uptake and excretion from both kidneys without hydronephrosis s een bilaterally. Scattered simple-appearing thin-walled cysts of varying size and shape throughout th e right kidney. BOWEL: Oral contrast reaches level of sigmoid colon. No suspicious small or large bowel dilatation. S mall size hiatal hernia redemonstrated. Some scattered colonic diverticula greatest in number in the left colon. No CT evidence for acute diverticulitis. PROSTATE/SEMINAL VESICLES: Prostate gland normal in size. Scattered bilateral pelvic phleboliths. LYM PH NODES: No greater than 1cm abdominal or pelvic lymph nodes are appreciated. OSSEOUS STRUCTURES: Transitional type vertebra lumbosacral junction redemonstrated. 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 OTHER: Mild calcified plaque of the aorta extends into iliac branch vessels. Multilevel facet arthrop athy is redemonstrated. Moderate-sized fat-containing umbilical hernia redemonstrated. IMPRESSION: No suspicious new focal inflammatory change or focal fluid collection to suggest abscess . No significant new or acute findings.
--- NOTE | 2021-03-18 16:09 | PN ---
PROGRESS NOTE DATE OF SERVICE: 03/18/2021 REASON FOR FOLLOWUP: Fever. INTERVAL HISTORY: The patient did spike a low grade fever of 100.4 this morning. The patient is currently on room air. Patient denies having any chest pain or shortness of breath or cough. No abdominal pain. No nausea, vomiting or diarrhea. PHYSICAL EXAMINATION: Blood pressure 140/87, pulse of 78, temperature 98.9. He is 92% on room air. General description is an elderly male up in the chair in no distress. RESPIRATORY SYSTEM: Unlabored breathing, decreased intensity of breath sounds. No wheeze. HEART: S1, S2. Regular rate and rhythm. ABDOMEN: Soft, no tenderness. LABS: Hemoglobin is 13.5, white count if 4.8. D-dimer is 1.47. Ferritin is elevated as well as LDH, CRP. Procalcitonin 0.14. DIAGNOSTIC IMPRESSION AND PLAN: Patient with fever in this patient admitted to the hospital with obstructive jaundice and did have evidence of retained stones status post ERCP and balloon extraction of stones with subsequently with concern for ascending cholangitis. However, the patient did not respond to the Unasyn. UA is negative. Blood culture has been negative. We will check his CT of abdomen and pelvis, adjust antibiotic to Zosyn and monitor clinical course closely. MMODL / IJN: [id number] /
[2021-03-18] MEDS: PIPERACILLIN-TAZOBACTAM 3.375 GM in SODIUM CHLORIDE 0.9% 100 ML IVPB SCH ×2 (16:32→22:45)
[2021-03-18] MEDS: SODIUM CHLORIDE 0.9% 1,000 ML IV SCH ×2 (16:33→22:45)
--- NOTE | 2021-03-18 19:02 | PN ---
PROGRESS NOTE CHIEF COMPLAINT: FUO. HISTORY OF PRESENT ILLNESS: This gentleman continues to run low-grade fevers at night. He has had no abdominal pain, cough, shortness of breath, etc. He is COVID-positive. PHYSICAL EXAMINATION: Chest demonstrates occasional rales bilaterally. Cardiac exam is normal. The abdomen is slightly protuberant, soft and nontender. Bowel sounds are present. Extremities are normal. IMPRESSION: 1. Low-grade fever; etiology unknown. 2. Status post sphincterotomy and release of common duct stones. 3. Previous cerebrovascular accident. 4. Positive test for COVID-19. PLAN: Continue to evaluate and work up temperature. ADDENDUM: Later in the day staff reported that he had a melanotic stool. Gastroenterology will be asked to re-evaluate and he will be placed on serial hemoglobins. MMODL / IJN: [id number] /
[2021-03-19 03:13] LABS: Basophils % (A) 1 %; Eosinophils % (A) 0 %; HCT 39.4 % (39.0-53.0); HGB 12.7 gm/dL (13.0-17.5); Lymphocytes # (A) 1.1 k/uL (1.0-4.8); Lymphocytes % (A) 26 %; MCH 32.2 pg (25.0-35.0); MCHC 32.3 g/dL (31.0-37.0); MCV 99.9 fL (80.0-100.0); Macrocytosis Slight; Mean Platelet Volume 8.8; Monocytes # (A) 0.2 k/uL (0-1.0); Monocytes % (A) 5 %; Neutrophils # (A) 2.8 k/uL (1.3-7.7); Neutrophils % (A) 65 %; Platelet Count 141 k/uL (150-450); RBC 3.94 m/uL (4.30-5.90); RDW 14.3 % (11.5-15.5); WBC 4.3 k/uL (3.8-10.6)
[2021-03-19] MEDS: PANTOPRAZOLE 40 MG/10 ML VIAL IVP SCH (08:02)
[2021-03-19] MEDS: PIPERACILLIN-TAZOBACTAM 3.375 GM in SODIUM CHLORIDE 0.9% 100 ML IVPB SCH ×3 (08:03→23:11)
[2021-03-19] MEDS: FOLIC ACID 1 MG TAB PO SCH (08:03)
[2021-03-19] MEDS: FERROUS SULFATE 325 MG TAB PO SCH ×3 (08:03→20:06)
[2021-03-19] MEDS: SPIRONOLACTONE 25 MG TAB PO SCH ×3 (08:03→20:06)
[2021-03-19] MEDS: DOXAZOSIN 2 MG TAB PO SCH (08:03)
[2021-03-19] MEDS: amLODIPine 5 MG TAB PO SCH (08:03)
[2021-03-19] MEDS: MAGNESIUM OXIDE 400 MG TAB PO SCH (08:03)
[2021-03-19] MEDS: ASPIRIN 81 MG PO SCH (08:03)
[2021-03-19] MEDS: POTASSIUM CHLORIDE ER 20 MEQ TAB.ER PO SCH (08:03)
[2021-03-19] MEDS: SODIUM CHLORIDE 0.9% 1,000 ML IV SCH ×2 (08:04→15:40)
--- NOTE | 2021-03-19 12:03 | US ---
EXAMINATION TYPE: US venous doppler duplex LE DATE OF EXAM: 03/19/2021 10:50 AM COMPARISON: NONE CLINICAL HISTORY: 70-year-old male with swelling, r/o DVT. SIDE PERFORMED: Bilateral TECHNIQUE: The lower extremity deep venous system is examined utilizing real time linear array sonog nikunj with graded compression, doppler sonography and color-flow sonography. FINDINGS: VESSELS IMAGED: Common Femoral Vein Deep Femoral Vein Greater Saphenous Vein * Femoral Vein Popliteal Vein Small Saphenous Vein * Proximal Calf Veins (* superficial vessels) Fulfillment Representative notes: Patient scanned in chair, technically difficult. Right Leg: Negative for DVT Left Leg: Negative for DVT IMPRESSION: Technically difficult exam. The patient was scanned in a chair. No DVT identified in the bilateral lo wer extremities imaged from the groin to the upper calves.
--- NOTE | 2021-03-19 14:05 | P.PN ---
Subjective Progress Note Date: 03/19/21 Principal diagnosis: Abdominal pain, elevated LFTs Is seen and examined sitting up in his bedside chair. He then asked to see the patient again for complaints of dark-colored stool and a drop in his hemoglobin. The patient was started on oral iron on March 12 and started noticing the dark/black stools 3-4 days ago. He denies any abdominal pain, rectal bleeding, melena, nausea or vomiting. He is status post ERCP with 3 stone extraction on March 13. His current hemoglobin is 12.7. Objective - Vital Signs Vital signs: Vital Signs Temp 99.7 F H 03/19/21 13:55 Pulse 73 03/19/21 13:55 Resp 19 03/19/21 13:55 BP 136/86 03/19/21 13:55 Pulse Ox 94 L 03/19/21 13:55 Intake & Output 03/18/21 03/19/21 03/19/21 18:59 06:59 18:59 Intake Total 1800 Output Total 625 Balance 1800 -625 Weight 95.254 kg Intake: Intake, IV Titration 700 Amount Piperacillin-Tazobactam 3 100 .375 gm In Sodium Chloride 0.9% 100 ml @ 25 mls/hr IVPB Q8HR [facility] Rx# :[id number] Sodium Chloride 0.9% 1, 600 000 ml @ 100 mls/hr IV . Q10H [facility] Rx#:[id number] Oral 1100 Output: Urine 625 Other: Voiding Method Urinal Urinal External Catheter # Bowel Movements 1 - Exam General appearance: The patient is alert, oriented, appears in no acute distress. HET: Head is normocephalic and atraumatic. Conjunctiva pink. Sclera anicteric. Neck: Supple without lymphadenopathy. Abdomen: Soft, nontender, nondistended with bowel sounds. No guarding or rigidity. Extremities: Normal skin color and turgor. No pedal edema Skin: No rashes, no jaundice Neurological: No focal deficits. Alert and oriented 3. - Labs CBC & Chem 7: 03/19/21 02:42 03/17/21 16:52 Labs: Abnormal Lab Results - Last 24 Hours (Table) 03/18/21 03/18/21 03/18/21 Range/Units 06:30 14:51 17:21 RBC 4.07 L (4.30-5.90) m/uL Hgb (13.0-17.5) gm/dL Plt Count 127 L (150-450) k/uL D-Dimer 1.36 H (<0.60) mg/L FEU Procalcitonin 0.14 H (0.02-0.09) ng/mL 03/19/21 Range/Units 02:42 RBC 3.94 L (4.30-5.90) m/uL Hgb 12.7 L (13.0-17.5) gm/dL Plt Count 141 L (150-450) k/uL D-Dimer (<0.60) mg/L FEU Procalcitonin (0.02-0.09) ng/mL Microbiology - Last 24 Hours (Table) 03/15/21 19:41 Blood Culture - Preliminary Blood No Growth after 72 hours 03/15/21 13:47 Blood Culture - Preliminary Blood No Growth after 72 hours Assessment and Plan (1) Black stools Narrative/Plan: This is a 70-year-old -Malag[place] male patient who we have been asked to reevaluate regarding black stools. He had a mild drop in his hemoglobin from 14.2-12.7. He reports dark-colored stools that began 3 days ago. He denies any epigastric pain, abdominal pain, nausea, vomiting, melena, or rectal bleeding. He is on oral iron on March 12. Currently on Protonix twice daily. Is also had prolonged stay due to fever related to COVID-19 infection. Current Visit: Yes Status: Acute Code(s): K92.1 - MELENA SNOMED Code(s): 285739093 (2) Elevated LFTs Current Visit: Yes Status: Acute Code(s): R79.89 - OTHER SPECIFIED ABNORMAL FINDINGS OF BLOOD CHEMISTRY SNOMED Code(s): 289487540 (3) COVID-19 virus infection Current Visit: Yes Status: Acute Code(s): U07.1 - COVID-19 SNOMED Code(s): 723621528 Plan: 1. Continue symptomatic and supportive care 2. Diet as tolerated 3. Continue oral iron 4. Monitor daily CBC 5. Continue monitor for signs and symptoms of GI bleed 6. No plans for any endoscopic intervention at this time Thank you for this consultation, we will continue to follow Dr. Saldana I agree with the dictator's note, documented as a scribe by Fartun Lawler.
[2021-03-19 17:20] LABS: Glucose,Whole Blood 116 mg/dL (75-99)
--- NOTE | 2021-03-19 17:37 | PN ---
PROGRESS NOTE DATE OF SERVICE: 03/19/2021 CHIEF COMPLAINT: Elevated liver function studies. HISTORY OF PRESENT ILLNESS: This gentleman is doing fairly well. He still is running temperatures at night, however. He denies any abdominal pain, cough, shortness of breath, hemoptysis, abdominal pain, urinary complaints, etc. He had a melenic stool yesterday, but his hemoglobin has been stable. He is being seen by GI. CT suggested there may be some thickening in the terminal ileum. PHYSICAL EXAMINATION: Chest demonstrates scattered rales and rhonchi bilaterally. Cardiac exam is normal. Abdomen is protuberant, soft and nontender without visceromegaly or masses. Bowel sounds present. Extremities normal. IMPRESSION: 1. Status post biliary obstruction and surgical intervention with sphincterotomy and stone removal. 2. Fever of unknown origin. 3. COVID positivity. 4. GI blood loss. PLAN: 1. Continue to monitor temperature and look for source. 2. He is being followed by Infectious Disease and Gastroenterology. 3. Await for GI recommendations regarding looking into the terminal ileum. MMODL / IJN: [id number] /
[2021-03-19] MEDS: PANTOPRAZOLE 40 MG TABLET PO SCH (20:06)
[2021-03-19] MEDS: ACETAMINOPHEN TAB 500 MG TAB PO PRN (21:44)
[2021-03-19] MEDS: ENOXAPARIN 40 MG/0.4 ML SYRINGE SQ SCH (21:57)
[2021-03-19] MEDS: DEXAMETHASONE SOD PHOSPHATE 10 MG/ML 1 ML VIAL IV SCH (21:57)
--- NOTE | 2021-03-20 01:46 | PN ---
PROGRESS NOTE DATE OF SERVICE: 03/19/2021. REASON FOR FOLLOWUP: Fever. INTERVAL HISTORY: Patient has been running a fever and fever 101.2 this evening. The patient himself denies having any headache. No chest pain. No shortness of breath. No cough. No abdominal pain. No diarrhea. No urinary symptoms. PHYSICAL EXAMINATION: Blood pressure 148/92, pulse of 73, temperature 101.2 and 94% on room air. General description is an elderly male up in the chair in no distress. Respiratory system: Unlabored breathing, decreased intensity of breath sounds. No wheeze. HEART: S1, S2. Regular rate and rhythm. ABDOMEN: Soft, no tenderness. LABS: Hemoglobin is 12.7, white count 4.3. No leukopenia. DIAGNOSTIC IMPRESSION/PLAN: Patient with a fever in this patient admitted to the hospital with jaundice and did have retained CBD stone, status post ERCP and extraction of the stones with concern for cholangitis. However, the patient did not respond to Unasyn or to Zosyn. CT of abdomen and pelvis was negative. Lower extremity Doppler has been negative as well, more likely due to his COVID-19 infection. The patient is currently out of the therapeutic window for Remdesivir. We will add the dexamethasone, Lovenox, zinc and ascorbic acid and see response to current treatment protocol and monitor clinical course closely. MMODL / IJN: [id number] /
[2021-03-20] MEDS: SODIUM CHLORIDE 0.9% 1,000 ML IV SCH ×2 (02:53→13:25)
[2021-03-20] MEDS: ENOXAPARIN 40 MG/0.4 ML SYRINGE SQ SCH (08:09)
[2021-03-20] MEDS: DEXAMETHASONE SOD PHOSPHATE 10 MG/ML 1 ML VIAL IV SCH (08:10)
[2021-03-20] MEDS: PIPERACILLIN-TAZOBACTAM 3.375 GM in SODIUM CHLORIDE 0.9% 100 ML IVPB SCH ×4 (08:10→23:06)
[2021-03-20] MEDS: SPIRONOLACTONE 25 MG TAB PO SCH ×3 (08:11→19:48)
[2021-03-20] MEDS: ZINC SULFATE 220 MG CAP PO SCH (08:11)
[2021-03-20] MEDS: DOXAZOSIN 2 MG TAB PO SCH (08:11)
[2021-03-20] MEDS: FERROUS SULFATE 325 MG TAB PO SCH ×3 (08:11→19:48)
[2021-03-20] MEDS: amLODIPine 5 MG TAB PO SCH (08:11)
[2021-03-20] MEDS: POTASSIUM CHLORIDE ER 20 MEQ TAB.ER PO SCH (08:11)
[2021-03-20] MEDS: ASPIRIN 81 MG PO SCH (08:11)
[2021-03-20] MEDS: PANTOPRAZOLE 40 MG TABLET PO SCH ×2 (08:11→19:48)
[2021-03-20] MEDS: ASCORBIC ACID 500 MG TAB PO SCH (08:11)
[2021-03-20] MEDS: FOLIC ACID 1 MG TAB PO SCH (08:11)
[2021-03-20] MEDS: MAGNESIUM OXIDE 400 MG TAB PO SCH (08:11)
--- NOTE | 2021-03-20 13:31 | XR ---
EXAMINATION TYPE: XR chest 1V portable DATE OF EXAM: 03/20/2021 HISTORY: Shortness of breath. COMPARISON: 03/17/2021 TECHNIQUE: Single view of the chest is submitted. FINDINGS: Demonstrated are scattered senescent parenchymal change. Patchy right upper lobe infiltrate. Vague increased density left lower lobe may reflect additional in filtrate. The heart is stable. Hilar and mediastinal structures are within normal limits. Degenerative changes are seen of the dorsal spine. IMPRESSION: 1. Patchy right upper lobe infiltrate. Vague increased density left lower lobe may reflect additiona l infiltrate.
[2021-03-20 13:52] LABS: HCT 40.3 % (39.0-53.0); HGB 13.5 gm/dL (13.0-17.5); MCH 33.3 pg (25.0-35.0); MCHC 33.6 g/dL (31.0-37.0); Mean Platelet Volume 10.3; Platelet Count 194 k/uL (150-450); RBC 4.07 m/uL (4.30-5.90); RDW 13.4 % (11.5-15.5)
--- NOTE | 2021-03-20 14:11 | P.PN ---
Subjective Progress Note Date: 03/20/21 Principal diagnosis: Abdominal pain, elevated LFTs She was seen and examined today. He denies any abdominal pain, nausea, or vomiting. He denies any coffee-ground emesis, rectal bleeding or melena. Had a normal brown bowel movement today. Hemoglobin is stable at 13.5 with no signs of GI bleed. Objective - Vital Signs Vital signs: Vital Signs Temp 98 F 03/20/21 09:21 Pulse 63 03/20/21 09:21 Resp 18 03/20/21 09:21 BP 160/91 03/20/21 09:21 Pulse Ox 93 L 03/20/21 09:21 Intake & Output 03/19/21 03/20/21 03/20/21 18:59 06:59 18:59 Output Total 600 800 Balance -600 -800 Output: Urine 600 800 Other: Voiding Method External Catheter External Catheter # Bowel Movements 1 - Exam General appearance: The patient is alert, oriented, appears in no acute distress. HET: Head is normocephalic and atraumatic. Conjunctiva pink. Sclera anicteric. Neck: Supple without lymphadenopathy. Abdomen: Soft, nontender, nondistended with bowel sounds. No guarding or rigidity. Extremities: Normal skin color and turgor. No pedal edema Skin: No rashes, no jaundice Neurological: No focal deficits. Alert and oriented 3. - Labs CBC & Chem 7: 03/20/21 11:53 03/17/21 16:52 Labs: Abnormal Lab Results - Last 24 Hours (Table) 03/19/21 03/20/21 Range/Units 17:13 11:53 WBC 3.0 L (3.8-10.6) k/uL RBC 4.07 L (4.30-5.90) m/uL POC Glucose (mg/dL) 116 H (75-99) mg/dL Microbiology - Last 24 Hours (Table) 03/15/21 19:41 Blood Culture - Preliminary Blood No Growth after 96 hours 03/15/21 13:47 Blood Culture - Preliminary Blood No Growth after 96 hours Assessment and Plan (1) Black stools Narrative/Plan: This is a 70-year-old -Arm[place]ian male patient who we have been asked to reevaluate regarding black stools. He had a mild drop in his hemoglobin from 14.2-12.7. He reports dark-colored stools that began 3 days ago. He denies any epigastric pain, abdominal pain, nausea, vomiting, melena, or rectal bleeding. He is on oral iron on March 12. Currently on Protonix twice daily. Is also had prolonged stay due to fever related to COVID-19 infection. Current Visit: Yes Status: Acute Code(s): K92.1 - MELENA SNOMED Code(s): 464552911 (2) Elevated LFTs Current Visit: Yes Status: Acute Code(s): R79.89 - OTHER SPECIFIED ABNORMAL FINDINGS OF BLOOD CHEMISTRY SNOMED Code(s): 840619644 (3) COVID-19 virus infection Current Visit: Yes Status: Acute Code(s): U07.1 - COVID-19 SNOMED Code(s): 119115257 Plan: 1. Continue symptomatic and supportive care 2. Diet as tolerated 3. Continue oral iron 4. Monitor daily CBC 5. Continue monitor for signs and symptoms of GI bleed 6. No plans for any endoscopic intervention at this time Thank you for this consultation, we will be on stand by if further needed please contact us. Otherwise patient is cleared for discharge from gastroenterology. Dr. Saldana I agree with the dictator's note, documented as a scribe by Fartun Lawler.
--- NOTE | 2021-03-20 16:09 | PN ---
PROGRESS NOTE DATE OF SERVICE: 03/20/2021 REASON FOR FOLLOWUP: Fever, likely related to COVID-19 infection. INTERVAL HISTORY: Patient did spike a fever last night of 102. The patient is afebrile. The patient mentioned he is feeling better. He is breathing comfortably. The patient denies any chest pain. Minimal cough. No abdominal pain. No diarrhea. PHYSICAL EXAMINATION: Blood pressure 160/91 with a pulse of 63, temperature 98, he is 93%. General description is the patient is an elderly male up in the chair in no distress. Respiratory system: Unlabored breathing, decreased intensity of breath sounds, no wheeze. Heart S1, S2. Regular rate and rhythm. Abdomen is soft, no tenderness. LAB: Hemoglobin 13.4, white count 3.0. IMPRESSION/PLAN: Patient with fever, more likely acute COVID-19 infection. This patient also have a retained stone, status post ERCP and extraction of the stone. The patient has been treated for ascending cholangitis. However, the fever did not respond very well to Zosyn or Unasyn. CT was negative for any abscess. We will continue with current supportive for COVID-19 with dexamethasone, Lovenox, zinc, ascorbic acid and monitor his clinical course closely. MMODL / IJN: [id number] /
--- NOTE | 2021-03-20 18:27 | PN ---
PROGRESS NOTE DATE OF SERVICE: 03/20/2021. CHIEF COMPLAINT: FUO. HISTORY OF PRESENT ILLNESS: This gentleman continues to state that he feels well. He denies any chills, fever, cough, shortness of breath, right upper quadrant pain, abdominal pain, urinary complaints, etc. However, his temperature keeps going up at night. Last night it was 102.1. REVIEW OF SYSTEMS: Otherwise unremarkable. PHYSICAL EXAMINATION: Chest is demonstrates occasional rales scattered bilaterally. Cardiac exam is normal. Abdomen is soft and nontender. Extremities are normal. IMPRESSION: Fever, unknown origin, most probably now related to the Covid 19 with no other sources being discovered. PLAN: Continue to monitor as an inpatient until that temperature began to subside or unless another etiology is discovered. MMODL / IJN: [id number] /
[2021-03-21] MEDS: SODIUM CHLORIDE 0.9% 1,000 ML IV SCH ×2 (04:23→07:48)
[2021-03-21] MEDS: ASPIRIN 81 MG PO SCH (07:46)
[2021-03-21] MEDS: amLODIPine 5 MG TAB PO SCH (07:47)
[2021-03-21] MEDS: ASCORBIC ACID 500 MG TAB PO SCH (07:47)
[2021-03-21] MEDS: FOLIC ACID 1 MG TAB PO SCH (07:47)
[2021-03-21] MEDS: PANTOPRAZOLE 40 MG TABLET PO SCH (07:47)
[2021-03-21] MEDS: PIPERACILLIN-TAZOBACTAM 3.375 GM in SODIUM CHLORIDE 0.9% 100 ML IVPB SCH (07:48)
[2021-03-21] MEDS: ZINC SULFATE 220 MG CAP PO SCH (07:48)
[2021-03-21] MEDS: POTASSIUM CHLORIDE ER 20 MEQ TAB.ER PO SCH (07:48)
[2021-03-21] MEDS: SPIRONOLACTONE 25 MG TAB PO SCH ×2 (07:48→15:24)
[2021-03-21] MEDS: MAGNESIUM OXIDE 400 MG TAB PO SCH (07:48)
[2021-03-21] MEDS: FERROUS SULFATE 325 MG TAB PO SCH ×2 (07:48→15:24)
[2021-03-21] MEDS: ENOXAPARIN 40 MG/0.4 ML SYRINGE SQ SCH (07:49)
[2021-03-21] MEDS: DEXAMETHASONE SOD PHOSPHATE 10 MG/ML 1 ML VIAL IV SCH (07:49)
[2021-03-21] MEDS: DOXAZOSIN 2 MG TAB PO SCH (10:46)
[2021-03-21 13:37] VITALS: BP 129/86; PULSE 64; RESP 18; TEMP 98
--- NOTE | 2021-03-21 14:48 | DS ---
DISCHARGE SUMMARY DATE OF SERVICE: 03/21/2021 CHIEF COMPLAINT: Upper abdominal pain and elevated liver function studies. HISTORY OF PRESENT ILLNESS AND PHYSICAL EXAMINATION: Details of this man's history and physical can be found in the initial workup. LABORATORY STUDIES: While he was in the hospital he had laboratory studies, details of which can be found in the laboratory section of his chart. COURSE IN THE HOSPITAL: After admission he was placed on bedrest and started on intravenous fluids and seen by Gastroenterology. He had an MRCP and was found to have common duct stone. He then underwent ERCP for sphincterotomy and removal of stone. After that, he did fairly well but he continued to run low-grade temperatures at night. He had no upper abdominal pain, exacerbation of liver enzyme elevation or jaundice, cough, shortness of breath, fever, chills, urinary complaints, etc. It was determined that this is likely on the basis of COVID-19. He had developed no acute symptoms. His temperature finally came down. He was followed by Infectious Disease and it was felt that he could go to [facility] on 03/21/2021. FINAL DIAGNOSES: 1. Obstructive jaundice. 2. Common duct stone. 3. COVID-19. 4. History of hypertension. 5. History of cerebrovascular accident with hemiparesis. OPERATIONS: ERCP. CONSULTATIONS: Gastroenterology and Infectious Disease. He is improved. MMODL / IJN: [id number] /
--- NOTE | 2021-03-21 16:12 | PN ---
PROGRESS NOTE DATE OF SERVICE: 03/21/2021 REASON FOR FOLLOWUP: Fever, likely secondary to COVID-19 infection. INTERVAL HISTORY: The patient's fever has resolved. No fever for more than 24 hours now. The patient is currently breathing comfortably on room air, saturating 96%. The patient denies having any chest pain or shortness of breath or cough. No abdominal pain or diarrhea. PHYSICAL EXAMINATION: Blood pressure 129/86, pulse of 54, temperature 98. He is 96% on room air. General description is an elderly male up in the chair in no distress. RESPIRATORY SYSTEM: Unlabored breathing with decreased intensity of breath sounds. No wheeze. HEART: S1, S2. Regular rate and rhythm. ABDOMEN: Soft. No tenderness. LABS: Blood culture has been negative. DIAGNOSTIC IMPRESSION AND PLAN: Patient with a fever, source likely COVID-19 infection, in this patient who has shown overall clinical improvement. Plan is to finish therapy with a short course of oral dexamethasone, zinc and ascorbic acid, and monitor his clinical course closely. Continue with supportive care. MMODL / IJN: [id number] /
== END 2021-03-21 16:41 | DRG 444 ==
LOC: EC 13:36 → 4SSUR 20:23
PROVIDERS: ADMIT Family Medicine; ATTEND Family Medicine
PROC: 0FC98ZZ Extirpation of Matter from Common Bile Duct, Via Natural or Artificial Opening Endoscopic (ICD-10-PCS; principal; 2021-03-13 07:30)
PROC: BF101ZZ Fluoroscopy of Bile Ducts using Low Osmolar Contrast (ICD-10-PCS; 2021-03-13 07:30)
DX: K80.31 Calculus of bile duct with cholangitis, unspecified, with obstruction (principal); U07.1 COVID-19; I69.351 Hemiplegia and hemiparesis following cerebral infarction affecting right dominant side; K57.32 Diverticulitis of large intestine without perforation or abscess without bleeding; K92.1 Melena; K80.61 Calculus of gallbladder and bile duct with cholecystitis, unspecified, with obstruction; E78.5 Hyperlipidemia, unspecified; E78.00 Pure hypercholesterolemia, unspecified; E11.9 Type 2 diabetes mellitus without complications; K75.9 Inflammatory liver disease, unspecified; N28.1 Cyst of kidney, acquired; Z83.3 Family history of diabetes mellitus; Z87.891 Personal history of nicotine dependence; Z79.82 Long term (current) use of aspirin; I10 Essential (primary) hypertension; Z90.49 Acquired absence of other specified parts of digestive tract; R79.89 Other specified abnormal findings of blood chemistry; J44.9 Chronic obstructive pulmonary disease, unspecified
CPT/HCPCS: 36415; 43262; 43264; 71045; 74018; 74177; 74330; 76705; 80053; 80074; 80143; 81003; 82103; 82105; 82150; 82390; 82728; 83516; 83540; 83550; 83605; 83615; 83690; 84145; 84484; 85025; 85027; 85379; 85610; 85730; 86140; 87040; 87635; 93970; 96374; 99285

== ENCOUNTER 2021-05-05 08:49 | Emergency (ER) | payer MEDICARE, OTHER ==
[2021-05-05 09:03] VITALS: TEMP 98.8
--- NOTE | 2021-05-05 09:38 | XR ---
EXAMINATION TYPE: XR chest 2V DATE OF EXAM: 05/05/2021 COMPARISON: 03/20/2021 HISTORY: Weakness TECHNIQUE: Frontal and lateral views of the chest are obtained. FINDINGS: There is diffuse interstitial opacity consistent with pulmonary vascular congestion and in terstitial edema. The heart size is normal. There is no consolidative opacity within the lungs. There is no pleural effusion or pneumothorax. The osseous structures are intact IMPRESSION: Findings most consistent with moderate CHF. Short-term follow-up to resolution is sugges juliet.
[2021-05-05 10:13] LABS: Basophils % (A) 0 %; Eosinophils # (A) 0.3 k/uL (0-0.7); Eosinophils % (A) 3 %; HCT 35.2 % (39.0-53.0); HGB 11.2 gm/dL (13.0-17.5); Lymphocytes # (A) 1.8 k/uL (1.0-4.8); Lymphocytes % (A) 17 %; MCH 30.5 pg (25.0-35.0); MCHC 31.8 g/dL (31.0-37.0); Monocytes # (A) 0.5 k/uL (0-1.0); Monocytes % (A) 5 %; Neutrophils # (A) 7.7 k/uL (1.3-7.7); Neutrophils % (A) 73 %; Platelet Count 329 k/uL (150-450); RBC 3.66 m/uL (4.30-5.90); RDW 15.8 % (11.5-15.5); WBC 10.5 k/uL (3.8-10.6)
[2021-05-05 10:16] LABS: ALT 43 U/L (4-49); AST 42 U/L (17-59); African American GFR (CKD) >90 (>60 ml/min/1.73 sqM); Albumin 3.8 g/dL (3.5-5.0); Alkaline Phosphatase 100 U/L (38-126); Anion Gap 7 mmol/L; Blood Urea Nitrogen 14 mg/dL (9-20); Calcium 11.5 mg/dL (8.4-10.2); Carbon Dioxide 29 mmol/L (22-30); Chloride 100 mmol/L (98-107); Glucose 108 mg/dL (74-99); Magnesium 1.5 mg/dL (1.6-2.3); Non-African American GFR(CKD) 83 (>60 ml/min/1.73 sqM); Potassium 4.5 mmol/L (3.5-5.1); Sodium 136 mmol/L (137-145); Total Bilirubin 1.1 mg/dL (0.2-1.3); Total Protein 7.6 g/dL (6.3-8.2)
[2021-05-05 10:39] LABS: Appearance,Urine Clear (Clear); Bacteria,Urine Rare /hpf; Bilirubin,Urine Negative (Negative); Blood,Urine Negative (Negative); Color,Urine Yellow; Glucose,Urine (UA) Negative (Negative); Hyaline Casts,Urine 9 /lpf (0-2); Ketones,Urine 1+ (Negative); Leukocyte Esterase,Urine Trace (Negative); Mucus,Urine Rare /hpf; Nitrite,Urine Negative (Negative); Protein,Urine Negative (Negative); RBC,Urine 1 /hpf (0-5); Specific Gravity,Urine 1.015 (1.001-1.035); Squamous Epithelial Cell,Urine 1 /hpf (0-4); Urobilinogen,Urine <2.0 mg/dL (<2.0); WBC,Urine 3 /hpf (0-5)
[2021-05-05 11:13] VITALS: BP 107/63; PULSE 66; RESP 18
--- NOTE | 2021-05-05 11:56 | ED ---
Weakness HPI - General Chief complaint: Weakness Stated complaint: Weakness Time Seen by Provider: 05/05/21 08:53 Source: patient, EMS, RN notes reviewed Mode of arrival: EMS Limitations: physical limitation (Right sided deficits from prior CVA) - History of Present Illness Initial comments: 70-year-old male presents emergency Department chief complaint of generalized weakness. This is an ongoing issue states that she feels at his baseline currently. Denies chest pain shortness of breath fevers chills cough congestion abdominal pain. Patient was admitted the hospital recently was at [facility] states that he checked out because he is feeling better any told that he could check out when he felt stronger. He states he has chronic right-sided weakness from a CVA tenderness ago. Patient does admit that it elevated in February. Patient states that he is able to ambulate with a cane. Patient states that he slid out of his bed this morning because the railing was not up on the right side. Patient no injury from this. - Related Data Home Medications Medication Instructions Recorded Confirmed Aspirin 81 mg PO DAILY 01/17/15 03/11/21 Atorvastatin [Lipitor] 80 mg PO DAILY 01/17/15 03/11/21 Cholecalciferol [Vitamin D3 (25 5,000 unit PO DAILY 01/17/15 03/11/21 Mcg = 1000 Iu)] Folic Acid 1 mg PO DAILY 01/17/15 03/11/21 Potassium Chloride ER [K-Dur 20] 20 meq PO DAILY 01/17/15 03/11/21 metHOTREXate sodium [Methotrexate] 25 mg PO MO 01/17/15 03/11/21 Doxazosin [Cardura] 2 mg PO DAILY 09/23/17 03/11/21 Magnesium Oxide 400 mg PO DAILY 09/23/17 03/11/21 Spironolactone [Aldactone] 25 mg PO TID 09/23/17 03/11/21 Acetaminophen [Tylenol 8 Hour] 1,300 mg PO TID PRN 03/11/21 03/11/21 Albuterol Inhaler [Ventolin Hfa 2 puff INHALATION RT-QID PRN 03/11/21 03/11/21 Inhaler] Ferrous Sulfate [Iron] 325 mg PO TID 03/11/21 03/11/21 Omeprazole [PriLOSEC] 20 mg PO DAILY 03/11/21 03/11/21 amLODIPine [Norvasc] 5 mg PO DAILY 03/11/21 03/11/21 Allergies Allergy/AdvReac Type Severity Reaction Status Date / Time Latex, Natural Rubber Allergy Rash/Hives Verified 05/05/21 09:03 Review of Systems ROS Statement: Those systems with pertinent positive or pertinent negative responses have been documented in the HPI. ROS Other: All systems not noted in ROS Statement are negative. Past Medical History Past Medical History: CVA/TIA, Hypertension History of Any Multi-Drug Resistant Organisms: None Reported Past Surgical History: Hernia Repair Additional Past Surgical History / Comment(s): unsure choley, sinus surgery Past Anesthesia/Blood Transfusion Reactions: No Reported Reaction Past Psychological History: No Psychological Hx Reported Smoking Status: Former smoker Past Alcohol Use History: None Reported Past Drug Use History: None Reported - Past Family History Brother(s) Family Medical History: Diabetes Mellitus General Exam General appearance: alert, in no apparent distress Head exam: Present: atraumatic, normocephalic, normal inspection Eye exam: Present: normal appearance, PERRL, EOMI. Absent: scleral icterus, conjunctival injection, periorbital swelling ENT exam: Present: normal exam, mucous membranes moist Neck exam: Present: normal inspection, full ROM. Absent: tenderness, meningismus, lymphadenopathy Respiratory exam: Present: normal lung sounds bilaterally. Absent: respiratory distress, wheezes, rales, rhonchi, stridor Cardiovascular Exam: Present: regular rate, normal rhythm, normal heart sounds. Absent: systolic murmur, diastolic murmur, rubs, gallop, clicks GI/Abdominal exam: Present: soft, normal bowel sounds. Absent: distended, ten derness, guarding, rebound, rigid Extremities exam: Present: other (Mild right-sided weakness upper and lower extremity chronic) Neurological exam: Present: alert, oriented X3 Skin exam: Present: warm, dry, intact, normal color. Absent: rash Course Vital Signs 05/05/21 05/05/21 08:58 11:09 Temperature 98.8 F Pulse Rate 96 66 Respiratory 20 18 Rate Blood Pressure 140/78 107/63 O2 Sat by Pulse 97 100 Oximetry Medical Decision Making - Medical Decision Making Labs reviewed no acute abnormalities. Patient states he feels at his normal baseline chest x-ray read possible congestion no no major changes from prior no pleural effusions. No hypoxia. Patient states that he first be discharged. We'll discharge has appointment Thursday with Dr. Arizmendi. - Lab Data Result diagrams: 05/05/21 09:52 05/05/21 09:52 Lab Results 05/05/21 05/05/21 05/05/21 Range/Units 09:52 09:52 09:52 WBC 10.5 (3.8-10.6) k/uL RBC 3.66 L (4.30-5.90) m/uL Hgb 11.2 L (13.0-17.5) gm/dL Hct 35.2 L (39.0-53.0) % MCV 96.0 (80.0-100.0) fL MCH 30.5 (25.0-35.0) pg MCHC 31.8 (31.0-37.0) g/dL RDW 15.8 H (11.5-15.5) % Plt Count 329 (150-450) k/uL MPV 8.0 Neutrophils % 73 % Lymphocytes % 17 % Monocytes % 5 % Eosinophils % 3 % Basophils % 0 % Neutrophils # 7.7 (1.3-7.7) k/uL Lymphocytes # 1.8 (1.0-4.8) k/uL Monocytes # 0.5 (0-1.0) k/uL Eosinophils # 0.3 (0-0.7) k/uL Basophils # 0.0 (0-0.2) k/uL Sodium 136 L (137-145) mmol/L Potassium 4.5 (3.5-5.1) mmol/L Chloride 100 (98-107) mmol/L Carbon Dioxide 29 (22-30) mmol/L Anion Gap 7 mmol/L BUN 14 (9-20) mg/dL Creatinine 0.93 (0.66-1.25) mg/dL Est GFR (CKD-EPI)AfAm >90 (>60 ml/min/1.73 sqM) Est GFR (CKD-EPI)NonAf 83 (>60 ml/min/1.73 sqM) Glucose 108 H (74-99) mg/dL Calcium 11.5 H (8.4-10.2) mg/dL Magnesium 1.5 L (1.6-2.3) mg/dL Total Bilirubin 1.1 (0.2-1.3) mg/dL AST 42 (17-59) U/L ALT 43 (4-49) U/L Alkaline Phosphatase 100 (38-126) U/L Troponin I <0.012 (0.000-0.034) ng/mL NT-Pro-B Natriuret Pep pg/mL Total Protein 7.6 (6.3-8.2) g/dL Albumin 3.8 (3.5-5.0) g/dL Urine Color Urine Appearance (Clear) Urine pH (5.0-8.0) Ur Specific [place] (1.001-1.035) Urine Protein (Negative) Urine Glucose (UA) (Negative) Urine Ketones (Negative) Urine Blood (Negative) Urine Nitrite (Negative) Urine Bilirubin (Negative) Urine Urobilinogen (<2.0) mg/dL Ur Leukocyte Esterase (Negative) Urine RBC (0-5) /hpf Urine WBC (0-5) /hpf Ur Squamous Epith Cells (0-4) /hpf Urine Bacteria (None) /hpf Hyaline Casts (0-2) /lpf Urine Mucus (None) /hpf 05/05/21 05/05/21 Range/Units 09:52 10:10 WBC (3.8-10.6) k/uL RBC (4.30-5.90) m/uL Hgb (13.0-17.5) gm/dL Hct (39.0-53.0) % MCV (80.0-100.0) fL MCH (25.0-35.0) pg MCHC (31.0-37.0) g/dL RDW (11.5-15.5) % Plt Count (150-450) k/uL MPV Neutrophils % % Lymphocytes % % Monocytes % % Eosinophils % % Basophils % % Neutrophils # (1.3-7.7) k/uL Lymphocytes # (1.0-4.8) k/uL Monocytes # (0-1.0) k/uL Eosinophils # (0-0.7) k/uL Basophils # (0-0.2) k/uL Sodium (137-145) mmol/L Potassium (3.5-5.1) mmol/L Chloride (98-107) mmol/L Carbon Dioxide (22-30) mmol/L Anion Gap mmol/L BUN (9-20) mg/dL Creatinine (0.66-1.25) mg/dL Est GFR (CKD-EPI)AfAm (>60 ml/min/1.73 sqM) Est GFR (CKD-EPI)NonAf (>60 ml/min/1.73 sqM) Glucose (74-99) mg/dL Calcium (8.4-10.2) mg/dL Magnesium (1.6-2.3) mg/dL Total Bilirubin (0.2-1.3) mg/dL AST (17-59) U/L ALT (4-49) U/L Alkaline Phosphatase (38-126) U/L Troponin I (0.000-0.034) ng/mL NT-Pro-B Natriuret Pep 59 pg/mL Total Protein (6.3-8.2) g/dL Albumin (3.5-5.0) g/dL Urine Color Yellow Urine Appearance Clear (Clear) Urine pH 5.0 (5.0-8.0) Ur Specific [place] 1.015 (1.001-1.035) Urine Protein Negative (Negative) Urine Glucose (UA) Negative (Negative) Urine Ketones 1+ H (Negative) Urine Blood Negative (Negative) Urine Nitrite Negative (Negative) Urine Bilirubin Negative (Negative) Urine Urobilinogen <2.0 (<2.0) mg/dL Ur Leukocyte Esterase Trace H (Negative) Urine RBC 1 (0-5) /hpf Urine WBC 3 (0-5) /hpf Ur Squamous Epith Cells 1 (0-4) /hpf Urine Bacteria Rare H (None) /hpf Hyaline Casts 9 H (0-2) /lpf Urine Mucus Rare H (None) /hpf Disposition Clinical Impression: Generalized weakness, Fatigue Disposition: HOME SELF-CARE Condition: Stable Instructions (If sedation given, give patient instructions): Weakness (ED) Additional Instructions: Please return to the Emergency Department if symptoms worsen or any other concerns. Is patient prescribed a controlled substance at d/c from ED?: No Referrals: Tuan Airzmendi MD [Primary Care Provider] - 1-2 days Time of Disposition: 11:56
== END 2021-05-05 12:57 | disposition home or self-care (01) ==
LOC: EC 08:49
DX: R53.1 Weakness (principal); R53.83 Other fatigue; I10 Essential (primary) hypertension; Z86.73 Personal history of transient ischemic attack (TIA), and cerebral infarction without residual deficits; Z87.891 Personal history of nicotine dependence; Z79.82 Long term (current) use of aspirin; Z79.899 Other long term (current) drug therapy
CPT/HCPCS: 36415; 71046; 80053; 81001; 83735; 83880; 84484; 85025; 93005; 99285